=== PATIENT | female | born 1965 | race Caucasian/White ===

== ENCOUNTER 2023-06-02 13:12 | Inpatient (IN) ==
--- NOTE | 2023-06-02 14:28 | Electrocardiogram Report ---
Test Reason : Blood Pressure : / mmHG Vent. Rate : 119 BPM Atrial Rate : 119 BPM P-R Int : 124 ms QRS Dur : 094 ms QT Int : 328 ms P-R-T Axes : 047 023 010 degrees QTc Int : 461 ms Sinus tachycardia Poor R wave progression, consider anterior OH vs. lead placement vs. LVH Abnormal ECG No previous ECGs available Confirmed by Regino Capellan ([id number]) on 06/02/2023 2:28:19 PM Referred By: Confirmed By:Regino Capellan
[2023-06-02 14:37] LABS: Basophils # (auto) 0.05 K/uL (0-0.2); Basophils % (auto) 0.4 %; Eosinophils # (auto) 0.02 K/uL (0-0.50); Eosinophils % (auto) 0.2 %; Hematocrit (blood only) 29.3 % (37.0-47.0); Hemoglobin 8.8 g/dl (12.0-16.0); Immature Granulocytes # (auto) 0.05 K/uL (0.01-0.20); Immature Granulocytes % (auto) 0.4 %; Lymphocytes # (auto) 1.77 K/uL (1.2-3.4); Lymphocytes % (auto) 14.9 %; Mean Corpuscular Volume 86.7 fL (80.0-100.0); Mean Platelet Volume 8.6 fL (9.4-12.4); Monocytes # (auto) 0.94 K/uL (0.11-0.59); Monocytes % (auto) 7.9 %; Neutrophils # (auto) 9.07 K/uL (1.40-6.50); Neutrophils % (auto) 76.2 %; Platelet Count 580 K/uL (130-400); RDW Coefficient of Variation 15.3 % (11.5-14.5); RDW Standard Deviation 47.8 fL (36.4-46.3); Red Blood Count 3.38 M/uL (4.20-5.40)
[2023-06-02 14:42] LABS: Alanine Aminotransferase 9 U/L (7-52); Albumin Globulin Ratio 0.7 (0.9-2); Albumin Level 2.9 gm/dl (3.4-5.0); Alkaline Phosphatase 165 U/L (34-104); Anion Gap 9 (3-11); Aspartate Aminotransferase 14 U/L (13-39); BUN Creatinine Ratio 16.3 (10-20); Bilirubin,Total 0.4 mg/dl (0.2-1.0); Blood Urea Nitrogen 8 mg/dl (6-23); Calcium 8.2 mg/dl (8.6-10.3); Carbon Dioxide 28 mmol/L (21-32); Chloride 99 mmol/L (98-107); Est GFR (African American) 126.2 ml/min; Est GFR (Non-African American) 108.9 ml/min; Globulin 4.4 gm/dl (2.5-4.0); Glucose 112 mg/dl (70-99(Fasting)); Magnesium 2.1 mg/dl (1.7-2.4); Potassium 3.2 mmol/L (3.5-5.1); Sodium 136 mmol/L (136-145); Total Protein 7.3 gm/dl (6.0-8.3)
[2023-06-02 14:47] LABS: Troponin I High Sensitivity 3.6 pg/ml (0-14)
[2023-06-02 15:08] LABS: INR 1.1 (0.9-1.1); Partial Thromboplastin Time 28.8 Seconds (21.0-31.0); Prothrombin Time 11.8 Seconds (9.0-12.0)
--- NOTE | 2023-06-02 15:53 | XRay Report ---
XR chest 1V not portable HISTORY: Sepsis COMPARISON: None. FINDINGS: No pneumothorax. There are low lung volumes. The cardiac silhouette is mildly enlarged. The re is mild central pulmonary vascular congestion without overt edema. Volume loss noted within the ri ght hemithorax with suture material at the right hilum suggestive of postoperative change. There is a small to moderate right pleural effusion. Right perihilar density may be due to the layering pleural fluid and/or consolidation within the right lung. IMPRESSION: 1. Small to moderate right pleural effusion. Right perihilar density may be due to the layering pleur al fluid and/or consolidation. 2. Mild cardiomegaly with mild congestive change. 3. Postoperative changes within the right lung. ACT 112: Negative or not required by law. Electronically signed by: Darin Wu M.D. 06/02/2023 3:51 PM
[2023-06-02] MEDS ORDERED: POTASSIUM CHLORIDE / WTR 10 MEQ/100 ML PLCT IV ONE (17:23)
[2023-06-02] MEDS ORDERED: IOVERSOL 350 MG 125mL Prefilled Syringe IV ONE (17:49)
--- NOTE | 2023-06-02 18:29 | CT Scan Report ---
CT angio chest PE protocol CT DOSE: 1760.63 mGy.cm HISTORY: 58 years-old Female with SOB, leg swelling, hx of sarcoma, WBC 11k. Acute shortness of marco antonio ath TECHNIQUE: Multiple CTA images of the chest were obtained after the intravenous administration of 91 ml Optiray. Coronal and sagittal MIPS were obtained from the axial data set and were submitted for [employer]. All measurements were obtained according to NASCET criteria. A dose lowering technique was ut ilized adhering to the principles of ALARA. COMPARISON: 06/02/2023. FINDINGS: CTA: Heart is normal in size. No pericardial effusion. Mild coronary artery calcifications. Mild atheroscl erosis of the thoracic aorta without aneurysm. Suboptimal opacification of the pulmonary arterial lashon e secondary to contrast bolus timing. Compression of the IVC secondary to the large masses below. Pro minence of the azygos vein. CT CHEST: No thyroid nodule. Calcified and partially outside lymph nodes of the chest include a 2.2 x 1.6 and r ight paratracheal lymph node on image 156. Noncalcified subcarinal lymphadenopathy measures up to 1.2 cm. There is a large heterogeneous partially necrotic mass in the right hemithorax appears to be ext ra pulmonary and is likely pleural-based measuring up to 13 x 12 x 16 cm. The craniocaudal extension of the lesion is partially imaged. This large mass involves the posterior pleura and diaphragmatic avila rfaces extending along the right diaphragmatic arianna into the upper abdomen. There is mass effect with partial collapse of the right lower lobe. Small right pleural effusion. Areas of pleural thickening and enhancement noted within the right hemithorax. Postoperative changes of the right lung. Calcified nodules in the right hemithorax measure up to 5 mm. Noncalcified solid nodules of the right lung courtney sure up to 4 mm. The left lung is generally clear. The central airways are patent. Hepatomegaly with hepatic steatosis. No acute fracture or destructive bone lesion identified. IMPRESSION: 1. Limited exam secondary to contrast bolus timing. No central pulmonary emboli identified. 2. Large partially imaged mass of the right hemithorax appears to be pleural-based and measures over 16 cm in greatest dimension suggestive of a malignant neoplasm. 3. Consolidation with partial collapse of the right lower lobe. 4. Small right pleural effusion with postoperative changes of the right lung. 5. Enlarged calcified and noncalcified mediastinal and right hilar lymph nodes. 6. Several scattered subcentimeter calcified and noncalcified pulmonary nodules of the right lung. ACT 112: Negative or not required by law. The above report was generated using voice recognition software. It may contain grammatical, syntax o r spelling errors. Electronically signed by: Bj Sorto M.D. 06/02/2023 6:26 PM
[2023-06-02] MEDS ORDERED: CEFEPIME 2,000 MG/20 ML VIAL IV STA (18:33)
[2023-06-02] MEDS ORDERED: ONDANSETRON INJ 2 MG/ML 2 ML VIAL IV STA (18:40)
[2023-06-02] MEDS ORDERED: HYDROmorphone INJ 0.5 MG/0.5 ML SYR IV PRN ×3 (18:40→23:33)
--- NOTE | 2023-06-02 19:19 | Emergency Department Note ---
Impression & Plan Right lower lobe lung mass, History of sarcoma, Leg edema, left, Flu-like symptoms, Acute hypokalemia, Anemia ED Provider Note INFORMANT: Patient and significant other ED PROVIDER(S): Gopi Au MD CHIEF COMPLAINT: Flulike symptoms PLAN: Disposition: Admitted Condition: Good Outpatient prescription management: none Referral: None MEDICAL DECISION MAKING: Patient presented because of concerns about possible pneumonia. She had a work- up initiated. She was being treated with antibiotics as an outpatient for presumed pneumonia. Patient was found to have mild anemia and leukocytosis on CBC and hypokalemia on chemistry panel. She was tachycardic. ECG did show poor R wave progression. Troponin was negative. BNP negative. Chest x-ray was concerning for effusion and density in the right lower chest. CT imaging was performed. CT imaging does show some collapse of the right lower lobe and a large mass in the right chest. Patient's notes that her report from [facility], which is not immediately available, measured about 7 inches. Radiology feels that this is likely mass and not infectious. I believe that this is causing the patient's back pain that she noted. She was treated with Dilaudid. She was given IV cefepime. IV potassium was also administered. Ultrasound imaging of the left lower extremity is negative for DVT. Further management and work-up in the hospital will be necessary. Consultation was made with Dr. Alf Hodges of the [facility] service. Patient was evaluated in the ER for further management. Discussed with railroad emergency services manager After review of the information above and other included data, I feel the pa david requires admission. Triage Nursing notes reviewed and agree them. Vital Signs: reviewed and remarkable for tachycardia Prior /Outside records reviewed: none Differential diagnosis: Pneumonia, complication of malignancy, cardiac ischemia, aortic dissection, pulmonary embolism, pneumothorax, pericarditis, myocarditis, esophageal rupture, GERD, cholecystitis, pancreatitis, musculoskeletal, as well as other pathologies. Diagnostics, as interpreted by me: ECG: Twelve-lead ECG was sinus tachycardia at 119 bpm. Poor R wave progression. No ST elevation or depression. Cardiac Monitoring: Cardiac monitoring ordered by me: The patient was placed on continuous cardiac monitoring and observed. It revealed a sinus tachycardia rhythm at 122 beats per minute without ectopy or evidence of dysrhythmia. Medical decision rules: none Imaging studies: Chest x-ray and CT scan as above. I refer you to the EMR for further details. HPI: The patient is a 58year old female who presents to the Emergency Room with complaints of flulike symptoms. This started 2 months ago persisting and is . The patient also notes the following associated symptoms, body aches, mild shortness of breath, swelling of her left lower extremity and hands, cough, pain in the right back, fever. The patient has been prescribed a course of doxycycline and 10 days of Zithromax for relieving factors. Current pain is rated as 0/10. 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 She finished chemotherapy in November 2021. Patient had a small nodule resected in the beginning of this year at [facility]. Primary oncology is at [facility]. Patient's just moved to this area due to 's employment. Patient states that she had a normal PET scan earlier this year. Patient was concerned that she may have had COVID at the beginning of this illness. Patient underwent imaging on May 16 at [facility] and was told that she had a mass in the right chest that the states was 7 inches but they felt it was infectious. They referred her to her PCP and recommended treatment with antibiotics. She states she was told that this was felt to be unlikely related to malignancy given the rapid appearance. Pt denies LOC, headache, diaphoresis, visual changes, neck pain, chest pain, nausea, vomiting, abdominal pain, melena, hematochezia, urinary symptoms, numbness, weakness, lymphadenopathy, rash, or other complaints. PAST MEDICAL HISTORY: See Below, sarcoma PAST SURGICAL HISTORY: See Below, wedge resection SOCIAL HISTORY: See Below, HOME MEDICATIONS: See Below ALLERGIES: See Below VITALS: See Below PHYSICAL EXAMINATION: GENERAL: Awake, alert, mildly uncomfortable-appearing, in no distress HENT: Normocephalic, atraumatic. Oropharynx unremarkable. EYES: Normal conjunctiva. Sclera non-icteric. NECK: Inspection normal. Non-tender. Supple. No nuchal rigidity. FROM. No masses. RESPIRATORY: Clear to auscultation except decreased in the right base. No wheezes. No rales. Normal respiratory effort. CARDIAC: Tachycardic rate. Normal rhythm. No murmurs. No rubs. Extremities warm and well perfused. Pulses equal. No JVD. GI: Soft, non-distended. No tenderness to palpation. No rebound or guarding. No masses. RECTAL: Deferred. MUSCULOSKELETAL: Atraumatic. Chest examination reveals no tenderness. The back is symmetrical on inspection without obvious abnormality. There is no CVA tenderness to palpation. No joint edema. LOWER EXTREMITIES: Right lower extremity amputation present. Left lower extremity examination reveals some 1-2+ lower extremity edema. No discoloration. No calf tenderness. NEURO: Normal sensorium. No sensory or motor deficits noted. SKIN: No rash or jaundice noted. Past Med/Surg History Social History Smoking Status: Never smoker Preferred Language: Cameroonian Feels Safe at Home: Yes Allergies Allergies Allergy/AdvReac Type Severity Reaction Status Date / Time ibuprofen Allergy Severe TONGUE, Verified 06/02/23 17:26 THROAT, MOUTH SWELLS NSAIDS (Non-Steroidal Allergy Severe TONGUE, Verified 06/02/23 17:26 Anti-Inflamma THROAT, MOUTH SWELLS shellfish derived Allergy Severe TONGUE, Verified 06/02/23 17:26 THROAT, MOUTH SWELLS ifosfamide AdvReac Severe CONFUSION/H Verified 06/02/23 17:26 ALLUCINATIO NS Home Meds Home Medications Medication Instructions Recorded Confirmed acetaminophen 500 mg tablet 1,000 mg PO DIRECTED PRN Pain 06/02/23 06/02/23 (Tylenol Extra Strength) Results & Data (ED) Vital Signs Vital Signs - 24 hr 06/02/23 13:19 06/02/23 17:35 06/02/23 17:35 Temperature 36.7 C 36.8 C Temperature Source Temporal Artery Scan Oral Pulse Rate 124 H Pulse Rate [Right Finger] 124 H Pulse Rhythm Regular Pulse Rhythm [Right Finger] Regular Pulse Strength Normal Pulse Strength [Right Finger] Normal Respiratory Rate 20 25 H Respiratory Effort / Characteristics Non-Labored Spontaneous Non-Labored Spontaneous Respiratory Depth Normal Normal Respiratory Pattern Regular Regular Blood Pressure 145/83 H Blood Pressure [Left Arm] 132/77 Blood Pressure Mean 103 Blood Pressure Mean [Left Arm] 95 Blood Pressure Position Sitting Blood Pressure Position [Left Arm] Lying Pulse Oximetry 96 94 Oxygen Delivery Method Room Air Room Air Room Air Oxygen Flow Rate Sepsis Recent Fever Within 48 Hours Yes Sepsis New/Unexplained Change in Mental Status No Sepsis Action Taken by Nursing No Action Required 06/02/23 17:35 06/02/23 18:22 06/02/23 18:06 Temperature Temperature Source Pulse Rate 124 H 117 H Pulse Rate [Right Finger] 114 H Pulse Rhythm Regular Pulse Rhythm [Right Finger] Pulse Strength Pulse Strength [Right Finger] Respiratory Rate 23 18 Respiratory Effort / Characteristics Respiratory Depth Respiratory Pattern Blood Pressure Blood Pressure [Left Arm] 132/76 Blood Pressure Mean Blood Pressure Mean [Left Arm] 94 Blood Pressure Position Blood Pressure Position [Left Arm] Pulse Oximetry 94 96 Oxygen Delivery Method Room Air Room Air Oxygen Flow Rate Sepsis Recent Fever Within 48 Hours Sepsis New/Unexplained Change in Mental Status Sepsis Action Taken by Nursing 06/02/23 19:00 06/02/23 19:43 06/02/23 21:01 Temperature 37.5 C Temperature Source Oral Pulse Rate Pulse Rate [Right Finger] 119 H 118 H 119 H Pulse Rhythm Pulse Rhythm [Right Finger] Regular Pulse Strength Pulse Strength [Right Finger] Normal Respiratory Rate 18 20 16 Respiratory Effort / Characteristics Non-Labored Non-Labored Spontaneous Non-Labored Respiratory Depth Normal Normal Normal Respiratory Pattern Regular Blood Pressure Blood Pressure [Left Arm] 130/71 106/71 157/83 H Blood Pressure Mean Blood Pressure Mean [Left Arm] 90 82 107 Blood Pressure Position Blood Pressure Position [Left Arm] Semi-fowlers Pulse Oximetry 95 94 99 Oxygen Delivery Method Room Air Room Air Nasal Cannula Oxygen Flow Rate 3 Sepsis Recent Fever Within 48 Hours Sepsis New/Unexplained Change in Mental Status Sepsis Action Taken by Nursing 06/02/23 21:30 Temperature Temperature Source Pulse Rate Pulse Rate [Right Finger] 122 H Pulse Rhythm Pulse Rhythm [Right Finger] Pulse Strength Pulse Strength [Right Finger] Respiratory Rate 16 Respiratory Effort / Characteristics Non-Labored Respiratory Depth Normal Respiratory Pattern Blood Pressure Blood Pressure [Left Arm] 140/73 Blood Pressure Mean Blood Pressure Mean [Left Arm] 95 Blood Pressure Position Blood Pressure Position [Left Arm] Pulse Oximetry 99 Oxygen Delivery Method Nasal Cannula Oxygen Flow Rate 3 Sepsis Recent Fever Within 48 Hours Sepsis New/Unexplained Change in Mental Status Sepsis Action Taken by Nursing Laboratory Data 06/02/23 14:00 06/02/23 14:00 Lab Results 06/02/23 06/02/23 06/02/23 Range/Units 14:00 14:00 14:00 WBC 11.90 H (4.8-10.8) K/ul RBC 3.38 L (4.20-5.40) M/uL Hgb 8.8 L (12.0-16.0) g/dl Hct 29.3 L (37.0-47.0) % MCV 86.7 (80.0-100.0) fL MCH 26.0 (25.0-34.0) pg MCHC 30.0 L (32.0-36.0) g/dL RDW Std Deviation 47.8 H (36.4-46.3) fL RDW Coeff of Az 15.3 H (11.5-14.5) % Plt Count 580 H (130-400) K/uL MPV 8.6 L (9.4-12.4) fL Immature Gran % (Auto) 0.4 % Neut % (Auto) 76.2 % Lymph % (Auto) 14.9 % [place] % (Auto) 7.9 % Eos % (Auto) 0.2 % Baso % (Auto) 0.4 % Neut # (Auto) 9.07 H (1.40-6.50) K/uL Lymph # (Auto) 1.77 (1.2-3.4) K/uL [place] # (Auto) 0.94 H (0.11-0.59) K/uL Eos # (Auto) 0.02 (0-0.50) K/uL Baso # (Auto) 0.05 (0-0.2) K/uL Immature Gran # (Auto) 0.05 (0.01-0.20) K/uL PT 11.8 (9.0-12.0) Seconds INR 1.1 (0.9-1.1) APTT 28.8 (21.0-31.0) Seconds PTT Ratio 1.0 Sodium (136-145) mmol/L Potassium (3.5-5.1) mmol/L Chloride (98-107) mmol/L Carbon Dioxide (21-32) mmol/L Anion Gap (3-11) BUN (6-23) mg/dl Creatinine (0.6-1.2) mg/dl Est Cr Clr Drug Dosing Est GFR ( Amer) ml/min Est GFR (Non-Af Amer) ml/min BUN/Creatinine Ratio (10-20) Glucose (70-99(Fasting)) mg/dl Lactate 1.2 (0.4-2.0) mmol/L Calcium (8.6-10.3) mg/dl Magnesium (1.7-2.4) mg/dl Total Bilirubin (0.2-1.0) mg/dl AST (13-39) U/L ALT (7-52) U/L Alkaline Phosphatase (34-104) U/L Troponin I High Sens (0-14) pg/ml B-Natriuretic Peptide (0-100) pg/ml Total Protein (6.0-8.3) gm/dl Albumin (3.4-5.0) gm/dl Globulin (2.5-4.0) gm/dl Albumin/Globulin Ratio (0.9-2) Procalcitonin (0-0.5) ng/ml Urine Color Urine Appearance (Clear) Urine pH (4.5-7.5) Ur Specific Candor (1.000-1.030) Urine Protein (Negative) Urine Glucose (UA) (Negative) Urine Ketones (Negative) Urine Blood (Negative) Urine Nitrite (Negative) Urine Bilirubin (Negative) Urine Urobilinogen (Negative) Ur Leukocyte Esterase (Negative) Urine WBC (Auto) (0-5) /hpf Urine RBC (Auto) (0-4) /hpf U Hyaline Cast (Auto) (0-5) /lpf U Epithel Cells (Auto) (0-5) /lpf Urine Bacteria (Auto) (Negative) Ur Renal Epithelial Cell SARS-CoV-2, RNA, NAAT (NEGATIVE) 06/02/23 06/02/23 06/02/23 Range/Units 14:00 14:00 17:14 WBC (4.8-10.8) K/ul RBC (4.20-5.40) M/uL Hgb (12.0-16.0) g/dl Hct (37.0-47.0) % MCV (80.0-100.0) fL MCH (25.0-34.0) pg MCHC (32.0-36.0) g/dL RDW Std Deviation (36.4-46.3) fL RDW Coeff of Az (11.5-14.5) % Plt Count (130-400) K/uL MPV (9.4-12.4) fL Immature Gran % (Auto) % Neut % (Auto) % Lymph % (Auto) % [place] % (Auto) % Eos % (Auto) % Baso % (Auto) % Neut # (Auto) (1.40-6.50) K/uL Lymph # (Auto) (1.2-3.4) K/uL [place] # (Auto) (0.11-0.59) K/uL Eos # (Auto) (0-0.50) K/uL Baso # (Auto) (0-0.2) K/uL Immature Gran # (Auto) (0.01-0.20) K/uL PT (9.0-12.0) Seconds INR (0.9-1.1) APTT (21.0-31.0) Seconds PTT Ratio Sodium 136 (136-145) mmol/L Potassium 3.2 L (3.5-5.1) mmol/L Chloride 99 (98-107) mmol/L Carbon Dioxide 28 (21-32) mmol/L Anion Gap 9 (3-11) BUN 8 (6-23) mg/dl Creatinine 0.49 L (0.6-1.2) mg/dl Est Cr Clr Drug Dosing Not Reportable Est GFR ( Amer) 126.2 ml/min Est GFR (Non-Af Amer) 108.9 ml/min BUN/Creatinine Ratio 16.3 (10-20) Glucose 112 H (70-99(Fasting)) mg/dl Lactate (0.4-2.0) mmol/L Calcium 8.2 L (8.6-10.3) mg/dl Magnesium 2.1 (1.7-2.4) mg/dl Total Bilirubin 0.4 (0.2-1.0) mg/dl AST 14 (13-39) U/L ALT 9 (7-52) U/L Alkaline Phosphatase 165 H (34-104) U/L Troponin I High Sens 3.6 (0-14) pg/ml B-Natriuretic Peptide 14 (0-100) pg/ml Total Protein 7.3 (6.0-8.3) gm/dl Albumin 2.9 L (3.4-5.0) gm/dl Globulin 4.4 H (2.5-4.0) gm/dl Albumin/Globulin Ratio 0.7 L (0.9-2) Procalcitonin 0.11 (0-0.5) ng/ml Urine Color Urine Appearance (Clear) Urine pH (4.5-7.5) Ur Specific Cand[place] (1.000-1.030) Urine Protein (Negative) Urine Glucose (UA) (Negative) Urine Ketones (Negative) Urine Blood (Negative) Urine Nitrite (Negative) Urine Bilirubin (Negative) Urine Urobilinogen (Negative) Ur Leukocyte Esterase (Negative) Urine WBC (Auto) (0-5) /hpf Urine RBC (Auto) (0-4) /hpf U Hyaline Cast (Auto) (0-5) /lpf U Epithel Cells (Auto) (0-5) /lpf Urine Bacteria (Auto) (Negative) Ur Renal Epithelial Cell SARS-CoV-2, RNA, NAAT (NEGATIVE) 06/02/23 06/02/23 Range/Units 19:15 19:15 WBC (4.8-10.8) K/ul RBC (4.20-5.40) M/uL Hgb (12.0-16.0) g/dl Hct (37.0-47.0) % MCV (80.0-100.0) fL MCH (25.0-34.0) pg MCHC (32.0-36.0) g/dL RDW Std Deviation (36.4-46.3) fL RDW Coeff of Az (11.5-14.5) % Plt Count (130-400) K/uL MPV (9.4-12.4) fL Immature Gran % (Auto) % Neut % (Auto) % Lymph % (Auto) % [place] % (Auto) % Eos % (Auto) % Baso % (Auto) % Neut # (Auto) (1.40-6.50) K/uL Lymph # (Auto) (1.2-3.4) K/uL [place] # (Auto) (0.11-0.59) K/uL Eos # (Auto) (0-0.50) K/uL Baso # (Auto) (0-0.2) K/uL Immature Gran # (Auto) (0.01-0.20) K/uL PT (9.0-12.0) Seconds INR (0.9-1.1) APTT (21.0-31.0) Seconds PTT Ratio Sodium (136-145) mmol/L Potassium (3.5-5.1) mmol/L Chloride (98-107) mmol/L Carbon Dioxide (21-32) mmol/L Anion Gap (3-11) BUN (6-23) mg/dl Creatinine (0.6-1.2) mg/dl Est Cr Clr Drug Dosing Est GFR ( Amer) ml/min Est GFR (Non-Af Amer) ml/min BUN/Creatinine Ratio (10-20) Glucose (70-99(Fasting)) mg/dl Lactate (0.4-2.0) mmol/L Calcium (8.6-10.3) mg/dl Magnesium (1.7-2.4) mg/dl Total Bilirubin (0.2-1.0) mg/dl AST (13-39) U/L ALT (7-52) U/L Alkaline Phosphatase (34-104) U/L Troponin I High Sens (0-14) pg/ml B-Natriuretic Peptide (0-100) pg/ml Total Protein (6.0-8.3) gm/dl Albumin (3.4-5.0) gm/dl Globulin (2.5-4.0) gm/dl Albumin/Globulin Ratio (0.9-2) Procalcitonin (0-0.5) ng/ml Urine Color Yellow Urine Appearance Clear (Clear) Urine pH 5.5 (4.5-7.5) Ur Specific [place] > 1.045 H (1.000-1.030) Urine Protein 1+ H (Negative) Urine Glucose (UA) Negative (Negative) Urine Ketones Trace H (Negative) Urine Blood Trace H (Negative) Urine Nitrite Negative (Negative) Urine Bilirubin Negative (Negative) Urine Urobilinogen Negative (Negative) Ur Leukocyte Esterase Negative (Negative) Urine WBC (Auto) 1-5 (0-5) /hpf Urine RBC (Auto) 0-4 (0-4) /hpf U Hyaline Cast (Auto) 10-30 H (0-5) /lpf U Epithel Cells (Auto) >30 H (0-5) /lpf Urine Bacteria (Auto) Negative (Negative) Ur Renal Epithelial Cell Not Reportable SARS-CoV-2, RNA, NAAT NEGATIVE (NEGATIVE) Administered Medications Hydromorphone HCl (Hydromorphone Inj 0.5 Mg/0.5 Ml Syr) 0.25 mg IV Q30M PRN PRN Reason: Pain Stop: 06/16/23 18:39 Last Admin: 06/02/23 19:27 Dose: 0.25 mg Documented By: ABW Discontinued Medications Hydromorphone HCl (Hydromorphone Inj 0.5 Mg/0.5 Ml Syr) 0.5 mg IV NOW STA Stop: 06/02/23 19:39 Last Admin: 06/02/23 19:45 Dose: 0.5 mg Documented By: ABW Potassium Chloride (K Marlon / Wtr) 10 meq in 100 mls @ 100 mls/hr IV ONE ONE; Protocol Stop: 06/02/23 18:22 Last Infusion: 06/02/23 19:06 Dose: 0 mls/hr Documented By: Admin: 06/02/23 18:06 Dose: 100 mls/hr Documented By: CHRYSTAL Cefepime HCl (Maxipime) 2,000 mg in 20 mls @ 5 mls/min IV NOW STA; Protocol Stop: 06/02/23 18:36 Last Admin: 06/02/23 19:18 Dose: 5 mls/min Documented By: JULIENNE Ioversol (Ioversol 350 Mg 125ml Prefilled Syringe) 91 ml IV ONCE ONE Stop: 06/02/23 17:50 Last Admin: 06/02/23 17:50 Dose: 91 ml Documented By: KAYLIE Ondansetron HCl (Ondansetron Inj 2 Mg/Ml 2 Ml Vial) 4 mg IV NOW STA Stop: 06/02/23 18:41 Last Admin: 06/02/23 19:27 Dose: 4 mg Documented By: CHRYSTAL Imaging Data Radiologist's Impression: Chest X-Ray 06/02/23 13:24 XR chest 1V not portable HISTORY: Sepsis COMPARISON: None. FINDINGS: No pneumothorax. There are low lung volumes. The cardiac silhouette is mildly enlarged. There is mild central pulmonary vascular congestion without overt edema. Volume loss noted within the right hemithorax with suture material at the right hilum suggestive of postoperative change. There is a small to moderate right pleural effusion. Right perihilar density may be due to the layering pleural fluid and/or consolidation within the right lung. IMPRESSION: 1. Small to moderate right pleural effusion. Right perihilar density may be due to the layering pleural fluid and/or consolidation. 2. Mild cardiomegaly with mild congestive change. 3. Postoperative changes within the right lung. ACT 112: Negative or not required by law. Electronically signed by: Darin Wu M.D. 06/02/2023 3:51 PM Chest CTA 06/02/23 17:23 CT angio chest PE protocol CT DOSE: 1760.63 mGy.cm HISTORY: 58 years-old Female with SOB, leg swelling, hx of sarcoma, WBC 11k. Acute shortness of breath TECHNIQUE: Multiple CTA images of the chest were obtained after the intravenous administration of 91 ml Optiray. Coronal and sagittal MIPS were obtained from the axial data set and were submitted for review. All measurements were obtained according to NASCET criteria. A dose lowering technique was utilized adhering to the principles of ALARA. COMPARISON: 06/02/2023. FINDINGS: CTA: Heart is normal in size. No pericardial effusion. Mild coronary artery calcifications. Mild atherosclerosis of the thoracic aorta without aneurysm. Suboptimal opacification of the pulmonary arterial tree secondary to contrast bolus timing. Compression of the IVC secondary to the large masses below. Prom inence of the azygos vein. CT CHEST: No thyroid nodule. Calcified and partially outside lymph nodes of the chest include a 2.2 x 1.6 and right paratracheal lymph node on image 156. Noncalcified subcarinal lymphadenopathy measures up to 1.2 cm. There is a large heterogeneous partially necrotic mass in the right hemithorax appears to be extra pulmonary and is likely pleural-based measuring up to 13 x 12 x 16 cm. The craniocaudal extension of the lesion is partially imaged. This large mass involves the posterior pleura and diaphragmatic surfaces extending along the right diaphragmatic arianna into the upper abdomen. There is mass effect with partial collapse of the right lower lobe. Small right pleural effusion. Areas of pleural thickening and enhancement noted within the right hemithorax. Postoperative changes of the right lung. Calcified nodules in the right hemithorax measure up to 5 mm. Noncalcified solid nodules of the right lung measure up to 4 mm. The left lung is generally clear. The central airways are patent. Hepatomegaly with hepatic steatosis. No acute fracture or destructive bone lesion identified. IMPRESSION: 1. Limited exam secondary to contrast bolus timing. No central pulmonary emboli identified. 2. Large partially imaged mass of the right hemithorax appears to be pleural- based and measures over 16 cm in greatest dimension suggestive of a malignant neoplasm. 3. Consolidation with partial collapse of the right lower lobe. 4. Small right pleural effusion with postoperative changes of the right lung. 5. Enlarged calcified and noncalcified mediastinal and right hilar lymph nodes. 6. Several scattered subcentimeter calcified and noncalcified pulmonary nodules of the right lung. ACT 112: Negative or not required by law. The above report was generated using voice recognition software. It may contain grammatical, syntax or spelling errors. Electronically signed by: Bj Sorto M.D. 06/02/2023 6:26 PM Venous Doppler Study 06/02/23 17:23 Exam(s): US VENOUS LEFT LOWER EXTREMITY EXAM: US Duplex Left Lower Extremity Veins CLINICAL HISTORY: Edema. TECHNIQUE: Real-time duplex ultrasound scan of the left lower extremity veins integrating B-mode two-dimensional vascular structure, Doppler spectral analysis, color flow Doppler imaging and compression. COMPARISON: No relevant prior studies available. FINDINGS: Deep veins: Unremarkable. No DVT in the visualized common femoral, femoral, proximal deep femoral or popliteal veins. The veins demonstrate normal color flow, are normally compressible, with normal phasic flow and/or augmentation response. The interrogated calf veins are patent. Superficial veins: Unremarkable. No thrombus in the saphenofemoral junction. Soft tissues: No acute findings. No popliteal cyst. IMPRESSION: No evidence for deep vein thrombosis involving the left lower extremity. Electronically signed by: Sang Reed MD 06/02/23 21:44 PM Discharge Plan Visit Data Chief Complaint: Referred by Doctor Stated Complaint: REF BY , COUGHING, SOB ED Provider: Gopi Au Discharge Problem: Right lower lobe lung mass, History of sarcoma, Leg edema, left, Flu-like symptoms, Acute hypokalemia, Anemia Forms Stand Alone Forms: Lua Prescriptions Prescriptions: No Action acetaminophen [Tylenol Extra Strength] 500 mg Tablet 1,000 mg PO DIRECTED PRN (Reason: Pain) Referrals Referrals: PCP,NO [Primary Care Provider] -
[2023-06-02] MEDS ORDERED: HYDROmorphone INJ 0.5 MG/0.5 ML SYR IV STA (19:38)
[2023-06-02 21:03] LABS: Appearance Urine Clear (Clear); Bacteria Urine Automated Negative (Negative); Bilirubin Urine Negative (Negative); Blood Urine Trace (Negative); Color Urine Yellow; Epithelial Cell Urine Auto >30 /lpf (0-5); Glucose Urine UA Negative (Negative); Ketones Urine Trace (Negative); Leukocyte Esterase Urine Negative (Negative); Nitrite Urine Negative (Negative); Protein Urine 1+ (Negative); RBC Urine Automated 0-4 /hpf (0-4); Specific Gravity Urine > 1.045 (1.000-1.030); Urobilinogen Urine Negative (Negative); pH Urine 5.5 (4.5-7.5)
--- NOTE | 2023-06-02 21:45 | Ultrasound Report ---
Exam(s): US VENOUS LEFT LOWER EXTREMITY EXAM: US Duplex Left Lower Extremity Veins CLINICAL HISTORY: Edema. TECHNIQUE: Real-time duplex ultrasound scan of the left lower extremity veins integrating B-mode two-dimensional vascular structure, Doppler spectral analysis, color flow Doppler imaging and compression. COMPARISON: No relevant prior studies available. FINDINGS: Deep veins: Unremarkable. No DVT in the visualized common femoral, femoral, proximal deep femoral or popliteal veins. The veins demonstrate normal color flow, are normally compressible, with normal phasic flow and/or augmentation response. The interrogated calf veins are patent. Superficial veins: Unremarkable. No thrombus in the saphenofemoral junction. Soft tissues: No acute findings. No popliteal cyst. IMPRESSION: No evidence for deep vein thrombosis involving the left lower extremity. Electronically signed by: Sang Reed MD 06/02/23 21:44 PM
--- NOTE | 2023-06-02 23:28 | History & Physical Report ---
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 -S/p IV cefepime 2 g in the ED. -10/31/2022: Metastatic nodule removed from right middle lobe via VATS wedge resection at [facility]. -02/13/2023: Total body PET scan negative no cancer detected. -03/23/2023: Onset of respiratory symptoms. Refractory to multiple antibiotics courses (doxycycline, azithromycin), supportive therapy. -05/14/2023: Lung consolidation on the right measuring approximately 7 cm long discovered on routine chest CT at [facility] etiology deemed to be most likely infectious by reviewing oncologist due to previously clear PET scan. -Patient unable to establish care with pulmonology since her got a new job at [employer]. Had been deferring ED visit due to the presumption that this was pneumonia. Only decided to come in due to worsening back pain, nonresolution of fever, cough. -Strongly suspect malignant process, given previous history of sarcoma, persistence of symptoms in spite of multiple antibiotics courses, low-grade fever, and waxing/waning of respiratory symptoms coinciding with antibiotic courses. * Admit to MedSur telemetry * Pulmonology consult for further evaluation of, management recommendations for lung mass. Made n.p.o. in advance of likely pleurocentesis. * Maintenance rate IV LR * Continue IV cefepime 2 g every 8 hours. Blood culture report pending. * IV Tylenol 1000 mg every 8 hours scheduled for right lower chest/RUQ pain. As needed IV hydromorphone for refractory pain. * SQ heparin anticoagulation (see below) * Trend leukocytosis on a.m. CBC Edema of left lower leg -No venous clot seen on Doppler performed prior to admission. -Area of mild erythema, though without tenderness to palpation, fluctuance, or ulcerations. -WBC only mildly elevated at 11, procalcitonin within normal limits. Low suspicion for cellulitic process, though will continue monitor. Anemia -Hemoglobin 8.8 in ER prior to admission. Normocytic. Unclear if acute or chronic. Patient relatively unknown to [facility]. No previous hemoglobin values for comparison. -History of sarcoma, though patient last treated with chemoradiation in November 2021. -Patient is relatively asymptomatic. Low concern for bleeding * Despite relatively low concern for bleeding, would consider initiating type and cross, obtaining patient consent in case repeat hemoglobin further decreases. Thrombocythemia -Unclear whether acute or chronic. Platelet count of 580 discovered in the ED prior to admission. -Mostly asymptomatic: Constitutional weakness, fatigue (no asterixis, bruising, or clots) * Peripheral smear ordered Hypokalemia -3.2 on admission. S/p repletion in the ED with IV KCl x10 mEq. * Replete with IV KCl rider x40 mEq * Trend a.m. BMP. Replete as indicated. 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 -Received 25 rounds of radiation treatment to the thigh and 3 rounds of chemotherapy (doxorubicin, ifosfamide, mesna) at [facility] between September 2021- November 2021. -Complete removal of right leg including femur on 01/16/2022. Per patient, clear margins achieved, 99% tumor necrosis. Surgery performed by Dr. Jam Candelaria at [place]. -Discovery of right middle lung nodule x1 determined to be metastasis of sarcoma. Nodule resected via VATS wedge surgery. Procedure performed by Dr. Daron Rogers at [facility]. Subsequent PET scan on 02/13/2023 clear (no cancer detected). * Oncology consult placed, as patient would like to establish care. Could be managed outpatient, though given uncertainty regarding potential malignant lung mass, inpatient oncological evaluation seems practical. Code: Full code Dispo: Med-Surg telemetry FEN/GI: NPO. IV LR @maintenance rate DVT Prophylaxis: Heparin 5000 u q12h PT/OT: Yes Consults: Pulmonology. Oncology. 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 Jesusalejandro Candelaria]) and subsequent right lung metastasis (s/p VATS wedge resection of right middle lobe on 10/31/[address] Daron Ibanez at [facility]). She presents to the emergency room with persistent back pain, fever, and rhinorrhea since 03/23/2023. Patient reports symptoms began on 03/23 with cough, rhinorrhea, fever, throat pain, as well as "muscle aches in the back." She managed her symptoms with OTC Mucinex DM after which her symptoms resolved, save for rhinorrhea, which lasted for 3 weeks and precipitated visit to urgent care on 04/16. She received prescription for doxycycline x10 days for possible pneumonia, which she completed. She reports her back pain improved at that time, though developed swelling in her hands and foot. She reports her fever and back pain returned about 3 days after completing doxycycline course. She presented to the same urgent care ([facility] in [place]) with a complaint of persistent fevershe was diagnosed with a viral infection and discharged home with instructions for trial of supportive therapy (Mucinex, oral hydration, etc.). When her symptoms did not improve, she contacted her o ncologist at [facility] (Dr. Rosario Browne [facility], [facility]) they recommended coming in for a chest CT scan. CT scan performed 05/14/2023 revealed right lower lung mass measuring approximately 7 cm, but was told by oncologist that mass was likely 2/2 infection given its rapid growth, and not likely to be malignant (no cancer detected at last PET scan on 02/13/2023). 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 She received 10-day course of azithromycin 500 mg at [facility] on 05/21/2023. Patient continued to report progressively worsening upper back pain, fever, night sweats, and malaise so her suggested she come to the ER for immediate evaluation. In the ED, vitals were notable for tachycardia to the 110s-120s. WBC was mildly elevated at 11.9. Anemia of 8.8 was also noted, as was thrombocytosis with a platelet count of 580K. She was also mildly hypokalemic (3.2) and hypocalcemic (8.2). Alk phos-165, lipase-6, lactate-1.2. Chest CTA revealed a "large heterogenous partially necrotic mass in the right hemithorax [that] appears to be extrapulmonary and is likely pleural-based measuring up to 13 x 12 x 16 cm." The mass involved the posterior pleura and diaphragmatic surfaces extending along right diaphragmatic arianna into the upper abdomen. Mass effect with partial collapse of right lower lobe, and a small right pleural effusion were noted on imaging. She received a dose of IV cefepime and IV Dilaudid, as well as 10 mEq of potassium chloride. Hospitalist service was then consulted for admission. On admission, she denies headache, shortness of breath, chest pain, nausea, flank pain, dysuria, or hematuria. ROS + 2/10 RUQ pain, left leg swelling. Patient has no other chronic conditions and takes no medications, save for as needed Tylenol. She is a never smoker. Her last chemo session was November 2021. Allergies Allergy/AdvReac Type Severity Reaction Status Date / Time ibuprofen Allergy Severe TONGUE, Verified 06/02/23 17:26 THROAT, MOUTH SWELLS NSAIDS (Non-Steroidal Allergy Severe TONGUE, Verified 06/02/23 17:26 Anti-Inflamma THROAT, MOUTH SWELLS shellfish derived Allergy Severe TONGUE, Verified 06/02/23 17:26 THROAT, MOUTH SWELLS ifosfamide AdvReac Severe CONFUSION/H Verified 06/02/23 17:26 ALLUCINATIO NS Home Medications Medication Instructions Recorded Confirmed Type acetaminophen 500 mg tablet 1,000 mg PO DIRECTED PRN Pain 06/02/23 06/02/23 History (Tylenol Extra Strength) Past Med/Surg History Social History Smoking Status: Never smoker Hx Alcohol Use: No Hx Substance Use: No Preferred Language: [place] African Communication Ability: Effective Data Abstractor Required: No Beliefs That Will Affect Care: None Current Living Situation: Spouse Feels Safe at Home: Yes Assistive Devices: Lift Chair, Prosthesis, Stair Lift, Walker and Wheelchair Review of Systems Review of Systems: All systems reviewed & are unremarkable except as noted in HPI & below Physical Exam Physical Exam: General: Tired-appearing, but otherwise alert and interactive woman in no acute distress. HEENT: Normocephalic, atraumatic. EOM intact. Good conjugate gaze. Nares patent. Moist mucosal membranes. Neck: Supple. No lymphadenopathy. Normal ROM. CV: Tachycardic rate. Regular rhythm. Normal S1 and S2. No murmurs gallops or rubs. Respiratory: Normal respiratory effortspeaking in complete sentences. Diminished breath sounds on the right, greatest at lower and middle lobes. No crackles, rhonchi, or wheezes heard on auscultation. Abdomen: Soft, nondistended abdomen. No bruits heard on auscultation. No tenderness to deep palpation. No guarding or rebound. 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 Left LE intact. 2+ pedal edema to the mid-franklin on the left. Neuro: Alert and oriented x3. Skin: Mild erythema of left lower leg with indistinct borders. Results & Data Results & Data Vital Signs (Past 12 Hours) Vital Signs Temp Pulse Pulse Resp BP BP Pulse Ox 06/02/23 22:30 122 H 16 174/103 H 97 06/02/23 21:30 122 H 16 140/73 99 06/02/23 21:01 119 H 16 157/83 H 99 06/02/23 19:43 37.5 C 118 H 20 106/71 94 06/02/23 19:00 119 H 18 130/71 95 06/02/23 18:06 117 H 06/02/23 18:22 114 H 18 132/76 96 06/02/23 17:35 124 H 23 94 06/02/23 17:35 06/02/23 17:35 36.8 C 124 H 25 H 132/77 94 06/02/23 13:19 36.7 C 124 H 20 145/83 H 96 O2 Del Method O2 Flow Rate 06/02/23 22:30 06/02/23 21:30 Nasal Cannula 3 06/02/23 21:01 Nasal Cannula 3 06/02/23 19:43 Room Air 06/02/23 19:00 Room Air 06/02/23 18:06 06/02/23 18:22 Room Air 06/02/23 17:35 Room Air 06/02/23 17:35 Room Air 06/02/23 17:35 Room Air 06/02/23 13:19 Room Air Code Status & VTE Plan VTE Prophylaxis Plan VTE Prophylaxis will be ordered: Yes Supervising Physician Co-Signing Physician Notes Attending addendum: I have physically seen this patient, have supervised the medical residents activities, and agree with the H&P unless as otherwise noted. Assessment and Plan: Right hemithorax pleural-based mass 16 cm/right lower lobe consolidation and partial lung collapse/mediastinal and right hilar lymphadenopathy- Right lung consolidation was noted to be 7 cm long with discovered at [facility] on 05/14/2023 and treated empirically for infection Surgeries and scans as noted in primary resident note Patient is seen as a new transfer to the area along with her Placed on broad-spectrum antibiotics vancomycin IV and cefepime IV Pain control with IV Tylenol for mild pain or fever, and Dilaudid IV as noted for moderate to severe pain Consult pulmonology Consult hematology oncology History of sarcoma- Stage III high-grade undifferentiated pleomorphic sarcoma of right thigh diagnosed September 2021 Status post 25 rounds of radiation therapy and 3 rounds of chemotherapy at [facility] from September 2021 through November 2021 Status post right leg amputation on 01/16/2022 right middle lobe lung nodule determined to be metastatic sarcoma via VATS surgery on 10/31/2022 Consult hematology oncology Remaining orders and notations as noted Resident Activity Tracking Resident Involvement: Resident Care Provided Care Provided: Adult [facility] Medicine
[2023-06-02] MEDS ORDERED: MELATONIN 3 MG TAB PO PRN (23:33)
[2023-06-02] MEDS ORDERED: POLYETHYLENE (MIRALAX) 17 GM PACK PO PRN (23:33)
[2023-06-03] MEDS: ACETAMINOPHEN 500 MG TAB PO SCH ×3 (00:15→14:49)
[2023-06-03] MEDS: LACTATED RINGER'S 1,000 ML IV SCH ×2 (00:16→13:23)
[2023-06-03 01:32] LABS: INR 1.1 (0.9-1.1); Prothrombin Time 11.9 Seconds (9.0-12.0)
[2023-06-03] MEDS: CEFEPIME 2,000 MG in SYRINGE 0 ML IV SCH ×3 (03:53→20:31)
[2023-06-03 04:43] LABS: Hematocrit (blood only) 25.3 % (37.0-47.0); Hemoglobin 7.6 g/dl (12.0-16.0); Mean Corpuscular Hemoglobin 25.7 pg (25.0-34.0); Mean Corpuscular Volume 85.5 fL (80.0-100.0); Mean Platelet Volume 8.7 fL (9.4-12.4); Platelet Count 516 K/uL (130-400); RDW Coefficient of Variation 15.4 % (11.5-14.5); RDW Standard Deviation 47.8 fL (36.4-46.3); Red Blood Count 2.96 M/uL (4.20-5.40); White Blood Count 13.66 K/ul (4.8-10.8)
[2023-06-03 04:56] LABS: BUN Creatinine Ratio 18.4 (10-20); Calcium 8.2 mg/dl (8.6-10.3); Creatinine Clr Calc Pharmacy 141.6 ml/min; Est GFR (African American) 126.2 ml/min; Est GFR (Non-African American) 108.9 ml/min; Magnesium 2.2 mg/dl (1.7-2.4); Phosphorus 3.9 mg/dl (2.5-4.9); Potassium 3.6 mmol/L (3.5-5.1)
[2023-06-03] MEDS: POTASSIUM CHLORIDE / WTR 10 MEQ/100 ML PLCT IV SCH ×4 (05:30→08:35)
--- NOTE | 2023-06-03 07:35 | Hospitalist Progress Note ---
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 #Right lung mass -13 x 12 x 16 cm right lower lung mass discovered on chest CTA prior to admission in ED concerning for lung malignancy. -S/p IV cefepime 2 g in the ED. -10/31/2022: Metastatic nodule removed from right middle lobe via VATS wedge [place] [facility] -02/13/2023: Total body PET scan negative no cancer detected. -03/23/2023: Onset of respiratory symptoms. Refractory to multiple antibiotics courses (doxycycline, azithromycin), supportive therapy. -05/14/2023: Lung consolidation on the right measuring approximately 7 cm long discovered on routine chest CT at [facility] etiology deemed to be most likely infectious by reviewing oncologist due to previously clear PET scan. -Patient unable to establish care with pulmonology since her got a new job at [employer]. Had been deferring ED visit due to the presumption that this was pneumonia. Only decided to come in due to worsening back pain, nonresolution of fever, cough. -Strongly suspect malignant process, given previous history of sarcoma, persistence of symptoms in spite of multiple antibiotics courses, low-grade fever, and waxing/waning of respiratory symptoms coinciding with antibiotic courses. * Maintenance rate IV LR * Continue IV cefepime 2 g every 8 hours. Blood culture report pending. * IV Tylenol 1000 mg every 8 hours scheduled for right lower chest/RUQ pain. As needed IV hydromorphone for refractory pain. * SQ heparin anticoagulation (see below) * Trend leukocytosis on a.m. CBC * Pulmonology consulted; Pt to undergo biopsy of the intrathoracic chest mass tomorrow at 8:30 AM and EBUS at noon, #Anemia -Hemoglobin 8.8 in ER prior to admission, now 7.6 - Unclear if acute or chronic -History of sarcoma, though patient last treated with chemoradiation in November 2021. -Patient is relatively asymptomatic. - type and cross and transfusion consent obtained due to hgb 7.6, will recheck in the am for need for transfusion, no overt active bleeding noted at this time #Hypokalemia -3.2 on admission. S/p repletion in the ED with IV KCl x10 mEq. * Repleted with IV KCl rider x40 mEq * Trend a.m. BMP. Replete as indicated. * Today K+ was 3.6 #Edema of left lower leg -No venous clot seen on Doppler performed prior to admission. -Area of mild erythema, though without tenderness to palpation, fluctuance, or ulcerations. -WBC only mildly elevated at 11, procalcitonin within normal limits. Low suspicion for cellulitic process, though will continue monitor. #Thrombocythemia -Unclear whether acute or chronic. Platelet count of 580 discovered in the ED prior to admission. 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 -Received 25 rounds of radiation treatment to the thigh and 3 rounds of chemotherapy (doxorubicin, ifosfamide, mesna) at [facility] between September 2021- November 2021. -Complete removal of right leg including femur on 01/16/2022. Per patient, clear margins achieved, 99% tumor necrosis. Surgery performed by Dr. Jam Candelaria at [place]. -Discovery of right middle lung nodule x1 determined to be metastasis of sarcoma. Nodule resected via VATS wedge surgery. Procedure performed by Dr. Daron Rogers at [facility]. Subsequent PET scan on 02/13/2023 clear (no cancer detected). * Oncology consult placed, as patient would like to establish care. Could be managed outpatient, though given uncertainty regarding potential malignant lung mass, inpatient oncological evaluation seems practical. Code: Full code Dispo: Med-Surg telemetry FEN/GI: NPO. IV LR @maintenance rate DVT Prophylaxis: Heparin 5000 u q12h PT/OT: Yes Consults: Pulmonology. Oncology. Case Management: Yes (2) Leg edema, left: (3) Anemia: (4) Acute hypokalemia: (5) Thrombocythemia: Admission and Anticipated Discharge Date Admission Date: June 02, 2023 Supervising Physician Co-Signing Physician Notes I personally examined the patient and verified all hanson points of history and exam, discussed case, and agree with decision making with Dr Cunha feeling Ok for biopsies tomorrow no current questions vitals noted nad heent nc at mmm breathing unlabored no accessory muscles good effort skin no rashes no pallor or icterus lung mass - concerning for recurrent malignancy. biopsies tomorrow. 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 Pt was seen this morning in the ED. present in the room. Symptoms had first started about 2 months ago and she has had persistent flu-like symptoms such as cough, body aches, shortness of breath, fever, back pain, and swelling of hands and L leg. Today, pt states that she is feeling better and that the back pain greatly improved with the Dilaudid that was given overnight. Right now, she is just concerned about the mass in her R lung since initially when noted by [facility] it was said to be infectious. No questions or complaints at this time otherwise. Review of Systems Review of Systems: Constitutional: denies fever, chills, HEENT: denies congestion, sore throat Cardio: denies chest pain, palpitations Resp: denies shortness of breath, cough GI: denies abdominal pain, nausea, vomiting, Physical Exam Physical Exam: General:Alert and oriented, no acute distress, HEENT: Normocephalic, moist oral mucosa, Cardio: Regular rate and rhythm, no murmur, Resp:Lungs clear to auscultation b/l, no wheezes or rhonchi, GI: Soft and nontender, nondistended, bowel sounds active Skin: Warm, pink, dry, MSK: Nonpitting edema noted of the left foot, R leg s/p amputation Psych: Mood-affect congruence. Results & Data Results & Data Vital Signs (Past 12 Hours) Vital Signs Temp Pulse Pulse Resp BP BP Pulse Ox 06/03/23 07:00 111 H 21 99 06/03/23 07:00 112/70 06/03/23 06:40 114/75 06/03/23 06:40 114/75 06/03/23 06:40 111 H 19 114/75 98 06/03/23 04:12 118 H 17 100/79 98 06/03/23 03:30 109 H 24 129/75 99 06/03/23 04:26 98 06/03/23 04:19 06/03/23 03:00 113 H 27 H 108/75 98 06/02/23 22:31 123 H 06/03/23 02:00 114 H 28 H 135/76 98 06/03/23 01:30 109 H 29 H 124/76 98 06/03/23 00:30 115 H 27 H 129/74 99 06/03/23 00:00 116 H 29 H 160/87 H 98 06/02/23 23:00 123 H 21 157/82 H 97 06/02/23 22:30 122 H 16 174/103 H 97 06/02/23 21:30 122 H 16 140/73 99 06/02/23 21:01 119 H 16 157/83 H 99 06/02/23 19:43 37.5 C 118 H 20 106/71 94 Pulse Ox O2 Del Method O2 Flow Rate 06/03/23 07:00 06/03/23 07:00 06/03/23 06:40 06/03/23 06:40 06/03/23 06:40 Nasal Cannula 3 06/03/23 04:12 Nasal Cannula 3 06/03/23 03:30 Nasal Cannula 3 06/03/23 04:26 Nasal Cannula 3 06/03/23 04:19 88 L Room Air 06/03/23 03:00 Nasal Cannula 06/02/23 22:31 06/03/23 02:00 Nasal Cannula 06/03/23 01:30 Nasal Cannula 06/03/23 00:30 Nasal Cannula 06/03/23 00:00 Nasal Cannula 3 06/02/23 23:00 Nasal Cannula 3 06/02/23 22:30 06/02/23 21:30 Nasal Cannula 3 06/02/23 21:01 Nasal Cannula 3 06/02/23 19:43 Room Air Resident Activity Tracking Resident Involvement: Resident Care Provided Care Provided: Adult Hospital Medicine
--- NOTE | 2023-06-03 08:17 | Pulmonary Consultation ---
Date of Consultation June 03, 2023 Assessment & Plan (1) Right lower lobe lung mass: (2) History of sarcoma: Plan IMPRESSION: 58-year-old female presenting with ongoing febrile illness, cough, and RIGHT upper back pain who was found to have large 16 cm pleural-based chest mass on CTA concerning for recurrence of previous history of high-grade sarcoma. RECOMMENDATIONS: 1. Intrathoracic chest mass - Highly suspicious for recurrence of sarcoma given patient's clinical history. Patient has been treated with 2 separate long courses of antibiotics without resolve of symptoms. We are unable to access the patient's recent PET/CT results from [facility], but regardless her images are concerning for possible neoplastic process. I did reach out to Dr. Daron Ibanez at [facility] who had previously performed her VATS with RIGHT middle lobe wedge resection. He is agreeable with obtaining tissue diagnosis first. He is uncertain if the patient would be a surgical candidate given the extensiveness of these findings. Discussed the case with interventional radiology. Reviewed all findings with the patient as well. Patient to undergo biopsy of the intrathoracic chest mass tomorrow at 8:30 AM and EBUS at noon. Agree with oncologic evaluation sooner rather than later. Patient will need outpatient PET scan. She may also need brain MRI to evaluate for metastatic processes as well. Otherwise, she is saturating well on 1 L at this time. We will evaluate the role for radiation oncology pending tissue biopsy results. Thank you for allowing us to participate in the care of this patient. We will continue to follow along during her inpatient stay. Supervising Physician Co-Signing Physician Notes Patient seen and examined. EMR reviewed. Images were independently reviewed and discussed with thoracic surgery at [facility]. The mass appears to be pleural- based with necrosis. Discussed with interventional radiology and there is a window to obtain a core biopsy of the more solid component. In addition she has mediastinal lymph nodes and will require staging of her mediastinum. We will schedule her for EBUS. The patient and spouse were apprised of the differential diagnosis to include malignancy, atypical infection (nocardia, actinomyces, nontuberculous mycobacterial infections). Additional recommendations will be based on pathology results from the biopsy and staging from the EBUS. She will require outpatient PET scanning. The patient and her are unclear where they are going to pursue additional cancer care. This may be at [facility] or may be at [facility]. We also discussed [facility] and [facility] who have excellent sarcoma programs. History of Present Illness Reason for Consultation: Right lower lung mass, c/f malignancy Requesting Physician: Dr. 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 The patient subsequently underwent 25 rounds of radiation treatments and chemotherapy including doxorubicin, ifosfamide, and mesna between September 2021 and November 2021. Patient eventually required amputation via disarticulation of the RIGHT-sided leg in December [address] Jam Candelaria at [facility]. The patient had continue to follow with [facility] for her sarcoma and had a CT finding with suspicious RIGHT middle lobe lung nodule. She underwent wedge resection of the RIGHT middle lobe in October [address] Daron Ibanez. The patient had then moved to [place] when her lost his job and she establish care with [facility] sarcoma clinic. She had seen him on 2 separate occasions. Unfortunately, on March 23, the patient developed flulike symptoms including body aches, fever, and generalized malaise as well as upper respiratory component of cough. She was seen 3 weeks later at a walk-in clinic and provided a prescription for 10 days of doxycycline. She had persistent fevers throughout. At the end of April, she had follow-up with her sarcoma specialist and there was concern for RIGHT lower lobe mass which was felt to be more related to infection. She was placed on an additional course of azithromycin for 10 days which had recently completed. Despite this, she r eports ongoing symptoms of fevers, cough, generalized malaise, night sweats, poor appetite, and unintentional weight loss. Patient had developed swelling of the LEFT lower extremity and bilateral upper extremities with some associated cough and RIGHT upper back pain which prompted visit to the emergency department. In evaluation in the emergency department, the patient was noted to have a large 16 cm pleural-based lung mass. She has a slight elevation of her white blood cell count at 13,000. She is also anemic and with thrombocythemia. Upon evaluation in room C10, the patient is awake, alert, and oriented. She continues to complain of some RIGHT upper back pain. Otherwise, she offers no new complaints at this time. Patient is recently returned to this area as her 's job is located them approximately 1 hour away. She has not established care locally to this point. Allergies Allergy/AdvReac Type Severity Reaction Status Date / Time ibuprofen Allergy Severe TONGUE, Verified 06/02/23 17:26 THROAT, MOUTH SWELLS NSAIDS (Non-Steroidal Allergy Severe TONGUE, Verified 06/02/23 17:26 Anti-Inflamma THROAT, MOUTH SWELLS shellfish derived Allergy Severe TONGUE, Verified 06/02/23 17:26 THROAT, MOUTH SWELLS ifosfamide AdvReac Severe CONFUSION/H Verified 06/02/23 17:26 ALLUCINATIO NS Home Medications Medication Instructions Recorded Confirmed Type acetaminophen 500 mg tablet 1,000 mg PO DIRECTED PRN Pain 06/02/23 06/02/23 History (Tylenol Extra Strength) Patient History Social History Smoking Status: Never smoker Preferred Language: Surinamese Feels Safe at Home: Yes Review of Systems Review of Systems: A complete 10 point review of systems was reviewed with the patient with pertinent positives and negatives as per history of present illness. All else were negative. Physical Exam Physical Exam: VITAL SIGNS - Vital signs and nursing notes were reviewed. GENERAL - 58-year-old female appearing her stated age who is in no acute distress. Communicates well with provider and answers questions appropriately. SKIN - Without rashes or lesions. NOSE - Midline and without cyanosis. MOUTH/OROPHARYNX - Without perioral cyanosis. LUNGS - Auscultation reveals absent breath sounds at the RIGHT lung base. No adventitious breath sounds noted throughout the remainder of lung yen. CARDIAC - RRR with S1/S2. No murmur, rubs, or gallops appreciated. ABDOMEN - Abdominal inspection demonstrates an obese abdomen. BS normoactive all four quadrants. No tenderness, palpable masses, or ascites noted. EXTREMITIES - LLE and bilateral UE peripheral edema. +3/5 radial palpated throughout. PSYCH - A&Ox3 and cooperates fully with examiner. Pt is very pleasant and interacts well with examiner. Results & Data Results & Data Vital Signs (Past 12 Hours) Vital Signs Pulse Pulse Resp BP BP Pulse Ox Pulse Ox 06/03/23 07:00 111 H 21 99 06/03/23 07:00 112/70 06/03/23 06:40 114/75 06/03/23 06:40 114/75 06/03/23 06:40 111 H 19 114/75 98 06/03/23 04:12 118 H 17 100/79 98 06/03/23 03:30 109 H 24 129/75 99 06/03/23 04:26 98 06/03/23 04:19 88 L 06/03/23 03:00 113 H 27 H 108/75 98 06/02/23 22:31 123 H 06/03/23 02:00 114 H 28 H 135/76 98 06/03/23 01:30 109 H 29 H 124/76 98 06/03/23 00:30 115 H 27 H 129/74 99 06/03/23 00:00 116 H 29 H 160/87 H 98 06/02/23 23:00 123 H 21 157/82 H 97 06/02/23 22:30 122 H 16 174/103 H 97 06/02/23 21:30 122 H 16 140/73 99 06/02/23 21:01 119 H 16 157/83 H 99 O2 Del Method O2 Flow Rate 06/03/23 07:00 06/03/23 07:00 06/03/23 06:40 06/03/23 06:40 06/03/23 06:40 Nasal Cannula 3 06/03/23 04:12 Nasal Cannula 3 06/03/23 03:30 Nasal Cannula 3 06/03/23 04:26 Nasal Cannula 3 06/03/23 04:19 Room Air 06/03/23 03:00 Nasal Cannula 06/02/23 22:31 06/03/23 02:00 Nasal Cannula 06/03/23 01:30 Nasal Cannula 06/03/23 00:30 Nasal Cannula 06/03/23 00:00 Nasal Cannula 3 06/02/23 23:00 Nasal Cannula 3 06/02/23 22:30 06/02/23 21:30 Nasal Cannula 3 06/02/23 21:01 Nasal Cannula 3 PG Care Time/CCT Total # of Minutes Spent Total Time Spent with Patient: Total time spent is greater than 50% in coordination of care (as documented) at patient's floor/unit and/or counseling patient: Coding Level of Care Code 71444 IN/OBS CONSULT LVL 5,80M Diagnoses Right lower lobe lung mass R91.8 History of sarcoma Z85.831
[2023-06-03] MEDS ORDERED: HEPARIN SOD 5,000 UNIT/0.5 ML VIAL SQ SCH (09:00)
--- NOTE | 2023-06-03 15:58 | Electrocardiogram Report ---
Test Reason : Blood Pressure : / mmHG Vent. Rate : 117 BPM Atrial Rate : 117 BPM P-R Int : 122 ms QRS Dur : 092 ms QT Int : 334 ms P-R-T Axes : 043 033 014 degrees QTc Int : 465 ms Sinus tachycardia Otherwise normal ECG When compared with ECG of 02-JUN-2023 13:54, No significant change was found Confirmed by Regino Capellan ([id number]) on 06/03/2023 3:57:54 PM Referred By: REFERRED SELF Confirmed By:Regino Capellan
[2023-06-03 18:05] LABS: Reticulocyte % 2.7 % (0.5-2.0); Reticulocytes # 0.08 10^6/uL (0.02-0.10)
[2023-06-03 18:18] LABS: Iron 11 mcg/dl (35-150); Total Iron Binding Cap Calc 168 mcg/dl (250-450); Transferrin (FE) Percent Satur 7 % (15-50); Unsaturated Iron Binding Cap 157 mcg/dl (155-355)
[2023-06-03 18:44] LABS: Folate (Folic Acid),Ser orPlas 9.61 ng/ml (>5.38)
--- NOTE | 2023-06-03 19:07 | Billing Data ---
Date of Service June 03, 2023 Coding Level of Care Code 30976 SUB INP/OBS CARE
--- NOTE | 2023-06-03 22:58 | Consultation ---
Date of Consultation June 03, 2023 Assessment & Plan (1) Right lower lobe lung mass: Rapidly evolving lung mass now seems much more discretely malignant with any pulmonary changes probably more postobstructive. Patient scheduled for biopsy tomorrow and this will obviously be pivotal. 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 While the recurrence in the right middle lobe was not particularly large and fully resected in October of this year, that recurrence within 1 year first presentation certainly is suggestive of an aggressive clinical course in parallel with the histologic aggression with which she first presented. As above, highly suspicious that the lung process represents further recurrence of the sarcoma. Biopsy is pending tomorrow. If we confirm metastatic sarcoma she may be well served by home coordinator review at a quaternary center before committing to a final salvage approach. Given the size of the lesion not clear that she is functionally good candidate for surgical resection or a priori radiation at least without some significant cy toreduction. She has had two-dimensional imaging apparently somewhat recently in the abdomen but it might be worthwhile redoing that to see if there is been any more rapid growth there. Need to confirm the results of the previous imaging and the specific timing. Overall prognosis is challenging and all the more reason for quaternary center review to explore not just standard but potential investigational options with which are presumably recurrent/metastatic sarcoma can be approached. (3) Leg edema, left: No DVT. Patient reports that she had had some recent two-dimensional imaging apparently had [facility] but given the rapid onset of changes in the lung, we may need to about whether we need to further look at her abdomen to see if disease there is obstructing. Alternative hypothesis is that the lung lesion is changing right heart dynamics and causing a generalized backup edema. (4) Anemia: Anemia he has hypoproductive with inappropriately low reticulocyte count, B12 and folic acid levels are in good range, normocytic but with suggestion of significant decreased iron stores as reflected by low serum iron and % sat. Ferritin levels are pending but any elevation there may be a nonspecific acute phase reactant. LDH is marginally elevated more reflective of the tissue mass in the chest than of any hemolysis given the low reticulocyte count as above With certainly we will support with transfusion if hemoglobin falls below 7.5 g/dL. Pending review of ferritin results, we will likely recommend iron infusion as well. Concern has to be why she is suddenly so iron deficient without any reported GI or external blood loss. Have to be concerned whether there may be hemorrhage into the lung mass and/or call into the abdomen Plan 1. Lung biopsy will be pivotal in confirming our suspicion of aggressive localized recurrence of her sarcoma 2. Need to get more complete details from [facility] including recent abdominal imaging 3. If the biopsy is positive may need to consider whether abdominal/pelvic restaging studies are worthwhile given the rapid changes over time in the lung 4. Would greatly benefit from a quaternary center review prior to making final decisions regarding any salvage therapy. Rather than return to [facility] she might prefer to seek input from [facility] or other [facility] quaternary center. Although she is quite pleased with initial care at [facility], she does note that they indicated they have little to offer in terms of experimental treatments which may be particularly important for a relatively younger woman who is so aggressively relapse after appropriately intense initial therapy 5. Transfusion support as needed for her red cells as above while we await ferritin levels to make a determination as to the role for iron infusion 6. May need to suspect internal bleeding contributing to the anemia/iron deficiency. History of Present Illness Reason for Consultation: Previous right thigh pleomorphic sarcoma status post radiation chemotherapy but ultimate right leg amputation who now has a rapidly evolving large mass in the lung Attending Physician: Mundo Cronin DO History of Present Illness Patient and her seem to be excellent historians. She was apparently originally diagnosed in September, with a high-grade pleomorphic sarcoma of the right leg. On initial treatment was at [facility] where she received Adriamycin/ifosfamide/mesna (AIM) and RT but ultimately was recommended for right leg amputation. In follow-up an isolated lung lesion was noted in the right middle lobe and she was status post resection of that nodule at [facility] in October of this year She had moved temporarily to the [facility] and sought further evaluation at [facility] in the interim since her first diagnosis where she was followed by the dedicated sarcoma team. They apparently had done a "routine" screening PET scan in January that was unremarkable but more recently she has had rapid evolution of right hemithorax changes. In the context of the negative PET scan in January, her [facility] oncology team at first thought that the very rapid changes signal been infection and she was treated with a series of antibiotics but with only ongoing worsening of the findings in the right hemithorax. She has been with fever, fatigue, anemia, and imaging showing a large right chest mass. She has no history of smoking, unusual occupational exposures, or any suggestion of other malignancy besides her previously diagnosed STS Allergies Allergy/AdvReac Type Severity Reaction Status Date / Time ibuprofen Allergy Severe TONGUE, Verified 06/02/23 17:26 THROAT, MOUTH SWELLS NSAIDS (Non-Steroidal Allergy Severe TONGUE, Verified 06/02/23 17:26 Anti-Inflamma THROAT, MOUTH SWELLS shellfish derived Allergy Severe TONGUE, Verified 06/02/23 17:26 THROAT, MOUTH SWELLS ifosfamide AdvReac Severe CONFUSION/H Verified 06/02/23 17:26 ALLUCINATIO NS Home Medications Medication Instructions Recorded Confirmed Type acetaminophen 500 mg tablet 1,000 mg PO DIRECTED PRN Pain 06/02/23 06/02/23 History (Tylenol Extra Strength) Patient History Social History Smoking Status: Never smoker Hx Alcohol Use: No Hx Substance Use: No Preferred Language: Syriac Communication Ability: Effective Scientific Advisor Required: No Beliefs That Will Affect Care: None Current Living Situation: Spouse Feels Safe at Home: Yes Assistive Devices: Lift Chair, Prosthesis, Stair Lift, Walker and Wheelchair Physical Exam Physical Exam: Vital signs stable noting adequate oxygenation on 2 L nasal cannula and a mild tachycardia. She is alert and seems comfortable at rest in bed though slightly anxious. There are no clear pathological lymph nodes in the cervical supraclavicular or axillary regions Lungs show decreased breath sounds on the right side but she is moving air well without use accessory muscles or tachypnea on the left The abdomen seems currently benign Right leg amputation, left lower extremity shows some diffuse edema but without clear compression tenderness or cords Neurologic exam seems nonfocal except for the inability to test right lower extremity given her previous amputation Results & Data Vital Signs (Past 12 Hours) Vital Signs Temp Pulse Pulse Resp BP Pulse Ox O2 Del Method 06/03/23 19:40 Nasal Cannula 06/03/23 19:00 36.9 C 103 H 18 124/75 97 Nasal Cannula 06/03/23 13:55 104 H 06/03/23 15:33 37.4 C 105 H 18 100/65 96 Nasal Cannula 06/03/23 13:34 Nasal Cannula 06/03/23 12:56 37.1 C 114 H 18 96/59 L 90 Room Air O2 Flow Rate 06/03/23 19:40 2 06/03/23 19:00 06/03/23 13:55 06/03/23 15:33 2 06/03/23 13:34 2 06/03/23 12:56 Laboratory Results Laboratory Results - last 24 hr 06/02/23 06/03/23 06/03/23 17:14 00:46 03:52 WBC 13.66 H RBC 2.96 L Hgb 7.6 L Hct 25.3 L MCV 85.5 MCH 25.7 MCHC 30.0 L RDW Std Deviation 47.8 H RDW Coeff of Az 15.4 H Plt Count 516 H MPV 8.7 L Reticulocyte % (Auto) Reticulocyte # Peripher Smr Path Cons PT 11.9 INR 1.1 Sodium Potassium Chloride Carbon Dioxide Anion Gap BUN Creatinine Est Cr Clr Drug Dosing Est GFR ( Amer) Est GFR (Non-Af Amer) BUN/Creatinine Ratio Glucose Calcium Phosphorus Magnesium Iron TIBC Unsaturated IBC Transferrin % Sat Lactate Dehydrogenase Lipase 6 L Vitamin B12 Folate Nasal Screen MRSA (PCR) Blood Type Antibody Screen 06/03/23 06/03/23 06/03/23 03:52 03:52 04:00 WBC RBC Hgb Hct MCV MCH MCHC RDW Std Deviation RDW Coeff of Az Plt Count MPV Reticulocyte % (Auto) Reticulocyte # Peripher Smr Path Cons PT INR Sodium 136 Potassium 3.6 Chloride 101 Carbon Dioxide 28 Anion Gap 7 BUN 9 Creatinine 0.49 L Est Cr Clr Drug Dosing 141.6 Est GFR ( Amer) 126.2 Est GFR (Non-Af Amer) 108.9 BUN/Creatinine Ratio 18.4 Glucose 123 H Calcium 8.2 L Phosphorus 3.9 Magnesium 2.2 Iron TIBC Unsaturated IBC Transferrin % Sat Lactate Dehydrogenase Lipase Vitamin B12 Folate Nasal Screen MRSA (PCR) Negative Blood Type Antibody Screen 06/03/23 06/03/23 06/03/23 08:01 17:35 17:35 WBC RBC Hgb Hct MCV MCH MCHC RDW Std Deviation RDW Coeff of Az Plt Count MPV Reticulocyte % (Auto) 2.7 H Reticulocyte # 0.08 Peripher Smr Path Cons PT INR Sodium Potassium Chloride Carbon Dioxide Anion Gap BUN Creatinine Est Cr Clr Drug Dosing Est GFR ( Amer) Est GFR (Non-Af Amer) BUN/Creatinine Ratio Glucose Calcium Phosphorus Magnesium Iron 11 L TIBC 168 L Unsaturated IBC 157 Transferrin % Sat 7 L Lactate Dehydrogenase Lipase Vitamin B12 Folate Nasal Screen MRSA (PCR) Blood Type O Positive Antibody Screen NEGATIVE 06/03/23 06/03/23 17:35 17:35 WBC RBC Hgb Hct MCV MCH MCHC RDW Std Deviation RDW Coeff of Az Plt Count MPV Reticulocyte % (Auto) Reticulocyte # Peripher Smr Path Cons PT INR Sodium Potassium Chloride Carbon Dioxide Anion Gap BUN Creatinine Est Cr Clr Drug Dosing Est GFR ( Amer) Est GFR (Non-Af Amer) BUN/Creatinine Ratio Glucose Calcium Phosphorus Magnesium Iron TIBC Unsaturated IBC Transferrin % Sat Lactate Dehydrogenase 266 H Lipase Vitamin B12 318 Folate 9.61 Nasal Screen MRSA (PCR) Blood Type Antibody Screen Diagnostic Findings Chest X-Ray 06/02/23 13:24 XR chest 1V not portable HISTORY: Sepsis COMPARISON: None. FINDINGS: No pneumothorax. There are low lung volumes. The cardiac silhouette is mildly enlarged. There is mild central pulmonary vascular congestion without overt edema. Volume loss noted within the right hemithorax with suture material at the right hilum suggestive of postoperative change. There is a small to moderate right pleural effusion. Right perihilar density may be due to the layering pleural fluid and/or consolidation within the right lung. IMPRESSION: 1. Small to moderate right pleural effusion. Right perihilar density may be due to the layering pleural fluid and/or consolidation. 2. Mild cardiomegaly with mild congestive change. 3. Postoperative changes within the right lung. ACT 112: Negative or not required by law. Electronically signed by: Darin Wu M.D. 06/02/2023 3:51 PM Chest CTA 06/02/23 17:23 CT angio chest PE protocol CT DOSE: 1760.63 mGy.cm HISTORY: 58 years-old Female with SOB, leg swelling, hx of sarcoma, WBC 11k. Acute shortness of breath TECHNIQUE: Multiple CTA images of the chest were obtained after the intravenous administration of 91 ml Optiray. Coronal and sagittal MIPS were obtained from the axial data set and were submitted for review. All measurements were obtained according to NASCET criteria. A dose lowering technique was utilized adhering to the principles of ALARA. COMPARISON: 06/02/2023. FINDINGS: CTA: Heart is normal in size. No pericardial effusion. Mild coronary artery david cifications. Mild atherosclerosis of the thoracic aorta without aneurysm. Suboptimal opacification of the pulmonary arterial tree secondary to contrast bolus timing. Compression of the IVC secondary to the large masses below. Prominence of the azygos vein. CT CHEST: No thyroid nodule. Calcified and partially outside lymph nodes of the chest include a 2.2 x 1.6 and right paratracheal lymph node on image 156. Noncalcified subcarinal lymphadenopathy measures up to 1.2 cm. There is a large heterogeneous partially necrotic mass in the right hemithorax appears to be extra pulmonary and is likely pleural-based measuring up to 13 x 12 x 16 cm. The craniocaudal extension of the lesion is partially imaged. This large mass involves the posterior pleura and diaphragmatic surfaces extending along the right diaphragmatic arianna into the upper abdomen. There is mass effect with partial collapse of the right lower lobe. Small right pleural effusion. Areas of pleural thickening and enhancement noted within the right hemithorax. Postoperative changes of the right lung. Calcified nodules in the right hemithorax measure up to 5 mm. Noncalcified solid nodules of the right lung measure up to 4 mm. The left lung is generally clear. The central airways are patent. Hepatomegaly with hepatic steatosis. No acute fracture or destructive bone lesion identified. IMPRESSION: 1. Limited exam secondary to contrast bolus timing. No central pulmonary emboli identified. 2. Large partially imaged mass of the right hemithorax appears to be pleural- based and measures over 16 cm in greatest dimension suggestive of a malignant neoplasm. 3. Consolidation with partial collapse of the right lower lobe. 4. Small right pleural effusion with postoperative changes of the right lung. 5. Enlarged calcified and noncalcified mediastinal and right hilar lymph nodes. 6. Several scattered subcentimeter calcified and noncalcified pulmonary nodules of the right lung. ACT 112: Negative or not required by law. The above report was generated using voice recognition software. It may contain grammatical, syntax or spelling errors. Electronically signed by: Bj Sorto M.D. 06/02/2023 6:26 PM Venous Doppler Study 06/02/23 17:23 Exam(s): US VENOUS LEFT LOWER EXTREMITY EXAM: US Duplex Left Lower Extremity Veins CLINICAL HISTORY: Edema. TECHNIQUE: Real-time duplex ultrasound scan of the left lower extremity veins integrating B-mode two-dimensional vascular structure, Doppler spectral analysis, color flow Doppler imaging and compression. COMPARISON: No relevant prior studies available. FINDINGS: Deep veins: Unremarkable. No DVT in the visualized common femoral, femoral, proximal deep femoral or popliteal veins. The veins demonstrate normal color flow, are normally compressible, with normal phasic flow and/or augmentation response. The interrogated calf veins are patent. Superficial veins: Unremarkable. No thrombus in the saphenofemoral junction. Soft tissues: No acute findings. No popliteal cyst. IMPRESSION: No evidence for deep vein thrombosis involving the left lower extremity. Electronically signed by: Sang Reed MD 06/02/23 21:44 PM PG Care Time/CCT Total # of Minutes Spent Total Time Spent with Patient: Total time spent is greater than 50% in coordination of care (as documented) at patient's floor/unit and/or counseling patient: Coding Level of Care Code 69952 IN/OBS CONSULT LVL 4,60M Medical Decision Making High Complexity Diagnoses Right lower lobe lung mass R91.8 History of sarcoma Z85.831 Leg edema, left R60.0 Anemia D64.9
--- NOTE | 2023-06-04 02:21 | Billing Data ---
Date of Service June 04, 2023 Coding Level of Care Code 87051 INT INP/OBS CARE
[2023-06-04] MEDS: LACTATED RINGER'S 1,000 ML IV SCH ×3 (04:28→22:33)
[2023-06-04] MEDS: CEFEPIME 2,000 MG in SYRINGE 0 ML IV SCH ×3 (04:28→20:17)
--- NOTE | 2023-06-04 06:52 | Hospitalist Progress Note ---
Date of Service June 04, 2023 Assessment & Plan (1) Right lower lobe lung mass: Plan: #Right lung mass -13 x 12 x 16 cm right lower lung mass discovered on chest CTA prior to admission in ED concerning for lung malignancy. -S/p IV cefepime 2 g in the ED. -10/31/2022: Metastatic nodule removed from right middle lobe via VATS wedge resection at [facility]. -02/13/2023: Total body PET scan negative no cancer detected. -03/23/2023: Onset of respiratory symptoms. Refractory to multiple antibiotics courses (doxycycline, azithromycin), supportive therapy. -05/14/2023: Lung consolidation on the right measuring approximately 7 cm long discovered on routine chest CT at [facility] etiology deemed to be most likely infectious by reviewing oncologist due to previously clear PET scan. -Patient unable to establish care with pulmonology since her got a new job at [employer]. Had been deferring ED visit due to the presumption that this was pneumonia. Only decided to come in due to worsening back pain, nonresolution of fever, cough. -Strongly suspect malignant process, given previous history of sarcoma, persistence of symptoms in spite of multiple antibiotics courses, low-grade fever, and waxing/waning of respiratory symptoms coinciding with antibiotic courses. * IV Tylenol 1000 mg every 8 hours scheduled for right lower chest/RUQ pain. As needed IV hydromorphone for refractory pain. * Maintenance rate IV LR * Continue IV cefepime 2 g every 8 hours. Blood culture report pending. Will trend WBC daily * Pulmonology consulted; Pt to undergo biopsy of the intrathoracic chest mass today at 8:30 AM and EBUS at noon, #Anemia -Hemoglobin 8.8 in ER prior to admission -> 7.6 - Likely chronic, as suggested by increased ferritin level; no overt signs of bleeding -History of sarcoma, though patient last treated with chemoradiation in November 2021. - today, hgb was 7.2 - will recheck hemoglobin and hematocrit later today after procedures at 2:30 pm #Hypokalemia -3.2 on admission. S/p repletion in the ED with IV KCl x10 mEq. * Repleted with IV KCl rider x40 mEq * Trend a.m. BMP. Replete as indicated. * Today K+ was 3.4, will replete by IV KCl rider * #Edema of left lower leg -No venous clot seen on Doppler performed prior to admission. -Area of mild erythema, though without tenderness to palpation, fluctuance, or ulcerations. -WBC only mildly elevated at 11 on admission, procalcitonin within normal limits. Low suspicion for cellulitic process, though will continue monitor. #Thrombocythemia -Unclear whether acute or chronic. Platelet count of 580 discovered in the ED prior to admission. 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 -Received 25 rounds of radiation treatment to the thigh and 3 rounds of chemotherapy (doxorubicin, ifosfamide, mesna) at [facility] between September 2021- November 2021. -Complete removal of right leg including femur on 01/16/2022. Per patient, clear margins achieved, 99% tumor necrosis. Surgery performed by Dr. Jam Candelaria at [place]. -Discovery of right middle lung nodule x1 determined to be metastasis of sarcoma. Nodule resected via VATS wedge surgery. Procedure performed by Dr. Daron Rogers at [facility]. Subsequent PET scan on 02/13/2023 clear (no cancer detected). * Oncology consult placed, as patient would like to establish care. Could be managed outpatient, though given uncertainty regarding potential malignant lung mass, inpatient oncological evaluation seems practical. Code:Full code Dispo:Med-Surg telemetry FEN/GI:NPO. IV LR @maintenance rate DVT Prophylaxis:Heparin 5000 u q12h PT/OT:Yes Consults:Pulmonology. Oncology. Case Management:Yes (2) Leg edema, left: (3) Anemia: (4) Acute hypokalemia: (5) Thrombocythemia: Admission and Anticipated Discharge Date Admission Date: June 02, 2023 Supervising Physician Co-Signing Physician Notes I personally examined the patient and verified all hanson points of history and exam, discussed case, and agree with decision making with Dr Cunha feeling ok post biopsy. breathing ok. vitals noted nad heent nc at mmm breathing unlabored no accessory muscles good effort skin no rashes no pallor or icterus hypoxia - from mass, likely to need O2 at home - work on setting up mass -unfortunately likely recurrence of sarcoma. biopsies done, results pending, opts to f[facility] - will ask navigator to assist in this otherwise as above, hopefully home, close outpt f/u tomorrow Subjective Pt is a 58 yo female with past medical history of grade 3 sarcoma of the right leg (s/p removal of right LE) with right lung mets (s/p wedge resection) who presented on 06/02/23 for persistent respiratory symptoms concerning for pneumonia refractory to antibiotic treatments. Today, patient states she is feeling okay, just a bit nervous for the day today given that the biopsy will be later this morning. Otherwise, she states she is doing well. She states that her back pain has subsided since she got Dilaudid yesterday, and that she has not needed any since. No chest pain or SOB today. No lightheadedness. No nausea or vomiting. No further questions or complaints at this time. Review of Systems Review of Systems: Per HPI. Physical Exam Physical Exam: General:Alert and oriented, no acute distress, Cardio: Regular rate and rhythm, no murmur, Resp:Lungs clear to auscultation b/l, no wheezes or rhonchi, Skin: Warm, pink, dry, Psych: Mood-affect congruence. Results & Data Results & Data Vital Signs (Past 12 Hours) Vital Signs Temp Pulse Pulse Resp BP Pulse Ox O2 Del Method 06/04/23 04:34 108 H 102/51 L 95 Nasal Cannula 06/04/23 02:33 37.2 C 118 H 16 100/49 L 93 Nasal Cannula 06/04/23 00:20 111 H 06/03/23 23:11 37.1 C 102 H 18 110/71 94 Room Air 06/03/23 19:40 Nasal Cannula 06/03/23 19:00 36.9 C 103 H 18 124/75 97 Nasal Cannula O2 Flow Rate 06/04/23 04:34 2 06/04/23 02:33 2 06/04/23 00:20 06/03/23 23:11 06/03/23 19:40 2 06/03/23 19:00 Resident Activity Tracking Resident Involvement: Resident Care Provided Care Provided: Adult Hospital Medicine
[2023-06-04 07:04] LABS: Hematocrit (blood only) 24.1 % (37.0-47.0); Hemoglobin 7.2 g/dl (12.0-16.0); Mean Corpuscular Hemoglobin 26.2 pg (25.0-34.0); Mean Corpuscular Hgb Conc 29.9 g/dL (32.0-36.0); Mean Corpuscular Volume 87.6 fL (80.0-100.0); Mean Platelet Volume 8.6 fL (9.4-12.4); Platelet Count 496 K/uL (130-400); RDW Coefficient of Variation 15.7 % (11.5-14.5); RDW Standard Deviation 49.7 fL (36.4-46.3); Red Blood Count 2.75 M/uL (4.20-5.40); White Blood Count 13.23 K/ul (4.8-10.8)
[2023-06-04 07:16] LABS: BUN Creatinine Ratio 18.6 (10-20); Calcium 8.1 mg/dl (8.6-10.3); Creatinine Clr Calc Pharmacy 157.4 ml/min; Est GFR (African American) 131.8 ml/min; Est GFR (Non-African American) 113.7 ml/min; Potassium 3.4 mmol/L (3.5-5.1)
[2023-06-04 07:36] LABS: Ferritin 594.8 ng/ml (8-388)
[2023-06-04] MEDS ORDERED: fentaNYL citrate PF 100 MCG/2 ML VIAL ONE ×2 (08:38→10:19)
[2023-06-04] MEDS ORDERED: MIDAZOLAM HCL 5 MG/ML 1 ML VIAL ONE (10:18)
--- NOTE | 2023-06-04 10:25 | XRay Report ---
XR chest 1V not portable HISTORY: s/p rt chest wall biopsy COMPARISON: Chest CTA 06/02/2023. FINDINGS: No pneumothorax. A small right pleural effusions have slightly increased in size. Right bas ilar densities have progressed. A large right lower pleural-based mass is again noted. The left lung is clear. The heart is stable in size. IMPRESSION: 1. No pneumothorax. 2. Small right pleural effusion has slightly progressed. 3. The right lower pleural-based mass is again noted. ACT 112: Negative or not required by law. Electronically signed by: Darin Wu M.D. 06/04/2023 10:24 AM
--- NOTE | 2023-06-04 11:38 | Pre Anesthesia Assessment ---
Date of Service June 04, 2023 Pre Sedation Assessment Vital Signs Temp Pulse Pulse Resp BP Pulse Ox O2 Del Method 06/04/23 11:19 Room Air 06/04/23 10:24 126 H 26 H 119/78 95 Oxymask 06/04/23 09:58 16 116/66 91 Room Air 06/04/23 08:51 115 H 06/04/23 07:19 37.0 C 118 H 16 108/54 L 95 Room Air 06/04/23 04:34 108 H 102/51 L 95 Nasal Cannula 06/04/23 02:33 37.2 C 118 H 16 100/49 L 93 Nasal Cannula 06/04/23 00:20 111 H 06/03/23 23:11 37.1 C 102 H 18 110/71 94 Room Air 06/03/23 19:40 Nasal Cannula 06/03/23 19:00 36.9 C 103 H 18 124/75 97 Nasal Cannula 06/03/23 13:55 104 H 06/03/23 15:33 37.4 C 105 H 18 100/65 96 Nasal Cannula 06/03/23 13:34 Nasal Cannula 06/03/23 12:56 37.1 C 114 H 18 96/59 L 90 Room Air O2 Flow Rate 06/04/23 11:19 06/04/23 10:24 3 06/04/23 09:58 06/04/23 08:51 06/04/23 07:19 06/04/23 04:34 2 06/04/23 02:33 2 06/04/23 00:20 06/03/23 23:11 06/03/23 19:40 2 06/03/23 19:00 06/03/23 13:55 06/03/23 15:33 2 06/03/23 13:34 2 06/03/23 12:56 Pre-Sedation Airway Assessment Smoking Status: Never smoker Hx Sleep Apnea: No Short, Thick Neck: No Thyromental Distance: > or= 3.5 Finger Breadths Oral Cavity: + WNL Mallampati Class: III ASA: ASA3 NPO Status Date of Last Intake of Fluids: 06/03/23 Time of Last Intake of Fluids: 22:00 Date of Last Intake of Solid Food: 06/03/23 Time of Last Intake of Solid Foods: 18:00 Notes The planned sedation has been discussed with the patient. Informed Consent was obtained. I have identified the patient, determined the appropriateness of sedation and have assessed the patient immediately prior to the procedure. All medicine(s) and interventions are by my order.
--- NOTE | 2023-06-04 11:38 | Pulmonology Progress Note ---
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 RECOMMENDATIONS: 1. Intrathoracic chest mass -await results of ultrasound guided transthoracic needle aspiration. N.p.o. for bronchoscopy with endobronchial ultrasound and transbronchial needle aspiration today to complete staging. Will need outpatient PET scan. Reviewed oncology consultation and agree with her assessment plan as noted. 2. After the bronchoscopy is completed, the patient can be dismissed from the hospital from a pulmonary perspective. She can follow-up with oncology regarding her biopsy results. Feel free to contact us with additional questions or concerns. Admission and Anticipated Discharge Date Admission Date: June 02, 2023 Subjective Patient seen and examined. EMR reviewed. The patient is without any new chest complaints. She did undergo a ultrasound-guided biopsy of the chest wall mass transthoracically earlier today. She is n.p.o. for bronchoscopy with endobronchial ultrasound and transbronchial needle aspiration. She does not report any fevers chills night sweats or other constitutional symptoms. Review of Systems Review of Systems: Unchanged from prior Physical Exam Physical Exam: VITAL SIGNS - Vital signs and nursing notes were reviewed. GENERAL - 58-year-old female appearing her stated age who is in no acute distress. Communicates well with provider and answers questions appropriately. SKIN - Without rashes or lesions. NOSE - Midline and without cyanosis. MOUTH/OROPHARYNX - Without perioral cyanosis. LUNGS - Auscultation reveals absent breath sounds at the RIGHT lung base. No adventitious breath sounds noted throughout the remainder of lung yen. CARDIAC - RRR with S1/S2. No murmur, rubs, or gallops appreciated. ABDOMEN - Abdominal inspection demonstrates an obese abdomen. BS normoactive all four quadrants. No tenderness, palpable masses, or ascites noted. EXTREMITIES - LLE and bilateral UE peripheral edema. +3/5 radial palpated throu ghout. PSYCH - A&Ox3 and cooperates fully with examiner. Pt is very pleasant and interacts well with examiner. Results & Data Results & Data Vital Signs (Past 12 Hours) Vital Signs Temp Pulse Pulse Resp BP Pulse Ox O2 Del Method 06/04/23 11:19 Room Air 06/04/23 10:24 126 H 26 H 119/78 95 Oxymask 06/04/23 09:58 16 116/66 91 Room Air 06/04/23 08:51 115 H 06/04/23 07:19 37.0 C 118 H 16 108/54 L 95 Room Air 06/04/23 04:34 108 H 102/51 L 95 Nasal Cannula 06/04/23 02:33 37.2 C 118 H 16 100/49 L 93 Nasal Cannula 06/04/23 00:20 111 H O2 Flow Rate 06/04/23 11:19 06/04/23 10:24 3 06/04/23 09:58 06/04/23 08:51 06/04/23 07:19 06/04/23 04:34 2 06/04/23 02:33 2 06/04/23 00:20 Laboratory Results 06/04/23 06:10 06/04/23 06:10 Diagnostic Findings No new imaging PG Care Time/CCT Total # of Minutes Spent Total Time Spent with Patient: Total time spent is greater than 50% in coordination of care (as documented) at patient's floor/unit and/or counseling patient: Coding Level of Care Code 57201 SUB INP/OBS CARE 2/35MIN Diagnoses Right lower lobe lung mass R91.8 History of sarcoma Z85.831
--- NOTE | 2023-06-04 12:19 | Post Anesthesia Assessment ---
Date of Service June 04, 2023 Post Sedation Assessment Vital Signs Temp Pulse Pulse Resp BP Pulse Ox O2 Del Method 06/04/23 12:05 132 H 18 102/64 97 Oxymask 06/04/23 12:00 120 H 18 124/69 96 Oxymask 06/04/23 11:55 120 H 18 107/67 96 Oxymask 06/04/23 11:50 124 H 18 120/76 95 Oxymask 06/04/23 11:45 121 H 18 124/66 95 Oxymask 06/04/23 11:40 122 H 18 113/73 99 Oxymask 06/04/23 11:19 Room Air 06/04/23 10:24 126 H 26 H 119/78 95 Oxymask 06/04/23 09:58 16 116/66 91 Room Air 06/04/23 08:51 115 H 06/04/23 07:19 37.0 C 118 H 16 108/54 L 95 Room Air 06/04/23 04:34 108 H 102/51 L 95 Nasal Cannula 06/04/23 02:33 37.2 C 118 H 16 100/49 L 93 Nasal Cannula 06/04/23 00:20 111 H 06/03/23 23:11 37.1 C 102 H 18 110/71 94 Room Air 06/03/23 19:40 Nasal Cannula 06/03/23 19:00 36.9 C 103 H 18 124/75 97 Nasal Cannula 06/03/23 13:55 104 H 06/03/23 15:33 37.4 C 105 H 18 100/65 96 Nasal Cannula 06/03/23 13:34 Nasal Cannula 06/03/23 12:56 37.1 C 114 H 18 96/59 L 90 Room Air O2 Flow Rate 06/04/23 12:05 15 06/04/23 12:00 15 06/04/23 11:55 15 06/04/23 11:50 15 06/04/23 11:45 3 06/04/23 11:40 3 06/04/23 11:19 06/04/23 10:24 3 06/04/23 09:58 06/04/23 08:51 06/04/23 07:19 06/04/23 04:34 2 06/04/23 02:33 2 06/04/23 00:20 06/03/23 23:11 06/03/23 19:40 2 06/03/23 19:00 06/03/23 13:55 06/03/23 15:33 2 06/03/23 13:34 2 06/03/23 12:56 Discharge Sedation Level of Care: Fast Track Phase II Post Sedation Plan On clinical assessment, the patient appears to have tolerated the sedation without complications. Patient is recovering as anticipated. Patient will continue to be monitored by nursing and may be discharged when sedation discharge criteria are met per below protocol. Upon Completions of procedure up to 15 minutes continue every 5 minute vital signs and the P.A.R. score; then discharge to a Phase I or Fast Track to Phase II per the following guidelines: * Discharge Patient to appropriate Phase II area if PAR is 8 or greater or return to pre- procedure baseline. The post - procedure orders will be as directed. * If PAR score is less than 8 or not return to pre-procedure baseline then patient will follow Phase I monitoring till PAR is reached for Phase II. The Phase I may be done in procedure room or may call to secure a Phase I area. * If naloxone or flumazenil are used for reversal, hold in Phase I for continued monitoring from when last reversal dose was given for a minimum of 60 minutes or longer pending the nurse and/or physician discretion of patient condition before discharge to Phase II. Please call the Sedation Physician to re-evaluate and complete post-note for discharge to Phase II area. Do NOT discharge from procedure sedation or Phase 1 until post- sedation evaluation note is complete by procedure /sedation MD Sedation Discharge Instructions to be given to the patient at discharge to home.
--- NOTE | 2023-06-04 12:24 | Procedure Note ---
Procedure Note Date of Service June 04, 2023 Note Procedure: Fiberoptic bronchoscopy Endobronchial ultrasound with transbronchial needle aspiration of lymph nodes Conscious sedation Provider: Cheo Em MD Consent: Signed by patient and timeout verified prior to procedure. Sedation start: 1135 Sedation end: 1206 Conscious sedation: 150 mcg fentanyl, 6 mg Versed, topical lidocaine per RT protocol Indication: Abnormal CT scan Estimated blood loss: Less than 5 mL Procedure: Patient was brought to the bronchoscopy suite. Consent was verified. Appropriate radiographic studies had been reviewed prior to the procedure. Standard monitoring was applied. Oxygen was administered. After topical anesthesia of the airways per respiratory therapy protocol, the fiberoptic scope was advanced through the oropharynx via the bite-block. Oropharynx was unremarkable. Vocal cords were visualized and were normal in function and appearance. Topical anesthesia of the cords was achieved with instillation of lidocaine through the scope. Scope was then passed through the vocal cords. The trachea was midline. Main ryder was slightly splayed. Anesthesia of the lower airways was achieved with instillation of lidocaine through the scope. A sequential and systematic examination of the lower airways was conducted. The right-sided airways were patent with the exception of a right middle lobectomy. The staple site appeared intact. See photos. Right upper lobe and right lower lobe were anatomically patent and the mucosa appeared normal. Left-sided airways were normal in anatomic configuration widely patent and the mucosa appeared normal. After the inspection bronchoscopy was completed, the fiberoptic bronchoscope was removed from the airway and the endobronchial ultrasound advanced through the vocal cords via the bite-block. A brief survey was conducted demonstrating adenopathy within the level 7 and level 4 stations corresponding to the abnormal CT scan. Using a 21-gauge needle and under direct ultrasound visualization, fine-needle aspiration was conducted of level 7 lymph node station and level 4R lymph node station. Rapid onsite cytologic evaluation confirmed lymphocytes in both samples. The patient was having transient oxygen desaturations and exhibiting significant coughing so additional lymph node biopsies were not taken at that time and the scope was removed. The bronchoscope was then removed from the airways. The patient tolerated the procedure well without obvious complication. Patient was returned to the recovery room. Impression: 1. Normal inspection bronchoscopy status post right middle lobe resection with staple line intact. 2. Pathologic adenopathy identified within the 4R and level 7 lymph node station status post fine-needle aspiration with 21-gauge needle, await cytology. If the patient were to have PET positive lymph nodes on the outpatient PET scan outside of these areas, could consider repeat endobronchial ultrasound with transbronchial needle aspiration although this may need to be conducted in the OR due to the patient's significant gag reflex and issues with sedation Coding CPT Codes Pulmonary/Thoracic - Pulmonary and Thoracic: 63063 Bronchoscopy, w/EBUS 1 or 2 mediastinal ([id number]) Sedation/Anesthesia - Sedation/Anesthesia: 30336 Mod Sedation by the same physician;Init15 Min Child Age 5 & Up ([id number]) Sedation/Anesthesia - Sedation/Anesthesia: 05056 Mod Sedation by the same physician; Ea [id number] Minutes ([id number]) [facility] [place] Codes (Charges) Pulmonary/Thoracic Procedure 1: Pulmonary and Thoracic: 34959 Bronchoscopy, w/EBUS 1 or 2 mediastinal Sedation/Anesthesia Procedure 2: Sedation/Anesthesia: 46973 Mod Sedation by the same physician;Init15 Min Child Age 5 & Up Total Sedation Time (minutes): 31 Procedure 3: Sedation/Anesthesia: 30057 Mod Sedation by the same physician; Ea [id number] Minutes
[2023-06-04] MEDS: POTASSIUM CHLORIDE / WTR 10 MEQ/100 ML PLCT IV SCH ×2 (13:12→15:26)
--- NOTE | 2023-06-04 14:42 | Ultrasound Report ---
Ultrasound-guided right chest wall mass core biopsy INDICATION: Complex right posterior chest wall mass; history of metastatic sarcoma PROCEDURE: Procedure and risks were explained. Informed consent was obtained. A final timeout was com pleted. The right posterior thorax was prepped and draped in sterile fashion. 1% buffered lidocaine w as utilized for skin anesthesia. Utilizing ultrasound guidance, a 17-gauge coaxial needle was advanced into the complex right posterio r chest wall mass. Ultrasound images were obtained. An 18-gauge core biopsy needle was advanced, and 3 cores were obtained and given to the pathologist for review. Approximately 8 mL of blood-tinged flu id was aspirated during the removal of the coaxial needle and also sent to the lab for analysis. The patient tolerated the procedure well. Vital signs will be monitored postprocedure and a chest x-ray w ill be obtained. IMPRESSION: Right chest wall mass core biopsy as detailed above. Performed, dictated, and signed by Sang Nguyen PA-C; to be co-signed by Dr. Darin Wu. Electronically signed by: Darin Wu M.D. 06/04/2023 2:57 PM
[2023-06-04 15:09] LABS: Hematocrit (blood only) 24.5 % (37.0-47.0); Hemoglobin 7.3 g/dl (12.0-16.0)
--- NOTE | 2023-06-04 17:48 | Billing Data ---
Date of Service June 04, 2023 Coding Level of Care Code 40772 SUB INP/OBS CARE
[2023-06-04] MEDS: ACETAMINOPHEN 500 MG TAB PO PRN (22:31)
[2023-06-05] MEDS: CEFEPIME 2,000 MG in SYRINGE 0 ML IV SCH (05:00)
--- NOTE | 2023-06-05 07:00 | Discharge Summary ---
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 Jam Candelaria]) and subsequent right lung metastasis (s/p VATS wedge resection of right middle lobe on 10/31/[address] Daron Ibanez at [facility] [facility]). She presents to the emergency room with persistent back pain, fever, and rhinorrhea since 03/23/2023. Patient reports symptoms began on 03/23 with cough, rhinorrhea, fever, throat pain, as well as "muscle aches in the back." She managed her symptoms with OTC Mucinex DM after which her symptoms resolved, save for rhinorrhea, which lasted for 3 weeks and precipitated visit to urgent care on 04/16. She received prescription for doxycycline x10 days for possible pneumonia, which she completed. She reports her back pain improved at that time, though developed swelling in her hands and foot. She reports her fever and back pain returned about 3 days after completing doxycycline course. She presented to the same urgent care ([facility] in [place]) with a complaint of persistent fevershe was diagnosed with a viral infection and discharged home with instructions for trial of supportive therapy (Mucinex, oral hydration, etc.). When her symptoms did not improve, she contacted her oncologist at [facility] (Dr. Rosario [facility]) they recommended coming in for a chest CT scan. CT scan performed 05/14/2023 revealed right lower lung mass measuring approximately 7 cm, but was told by oncologist that mass was likely 2/2 infection given its rapid growth, and not likely to be malignant (no cancer detected at last PET scan on 02/13/2023). Oncologist also recommended evaluation by doubler operator back at home in [place]. She received 10-day course of azithromycin 500 mg at [facility] on 05/21/2023. Patient continued to report progressively worsening upper back pain, fever, night sweats, and malaise so her suggested she come to the ER for immediate evaluation. In the ED, vitals were notable for tachycardia to the 110s-120s. WBC was mildly elevated at 11.9. Anemia of 8.8 was also noted, as was thrombocytosis with a platelet count of 580K. She was also mildly hypokalemic (3.2) and hypocalcemic (8.2). Alk phos-165, lipase-6, lactate-1.2. Chest CTA revealed a "large heterogenous partially necrotic mass in the right hemithorax [that] appears to be extrapulmonary and is likely pleural-based measuring up to 13 x 12 x 16 cm." The mass involved the posterior pleura and diaphragmatic surfaces extending along right diaphragmatic arianna into the upper abdomen. Mass effect with partial collapse of right lower lobe, and a small right pleural effusion were noted on imaging. She received a dose of IV cefepime and IV Dilaudid, as well as 10 mEq of potassium chloride. Hospitalist service was then consulted for admission. On admission, she denies headache, shortness of breath, chest pain, nausea, flank pain, dysuria, or hematuria. ROS + 2/10 RUQ pain, left leg swelling. Patient has no other chronic conditions and takes no medications, save for as needed Tylenol. She is a never smoker. Her last chemo session was November 2021. Admission Exam Per Admitting Provider General: Tired-appearing, but otherwise alert and interactive woman in no acute distress. HEENT: Normocephalic, atraumatic. EOM intact. Good conjugate gaze. Nares patent. Moist mucosal membranes. Neck: Supple. No lymphadenopathy. Normal ROM. CV: Tachycardic rate. Regular rhythm. Normal S1 and S2. No murmurs gallops or rubs. Respiratory: Normal respiratory effortspeaking in complete sentences. Diminished breath sounds on the right, greatest at lower and middle lobes. No crackles, rhonchi, or wheezes heard on auscultation. Abdomen: Soft, nondistended abdomen. No bruits heard on auscultation. No tenderness to deep palpation. No guarding or rebound. 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 Left LE intact. 2+ pedal edema to the mid-franklin on the left. Neuro: Alert and oriented x3. Skin: Mild erythema of left lower leg with indistinct borders. Principal Diagnosis Lung mass, hx sarcoma Discharge Exam General:Alert and oriented, no acute distress, Cardio: Regular rate and rhythm, no murmur, Resp:Lungs clear to auscultation b/l, no wheezes or rhonchi, Skin: Warm, pink, dry, Psych: Mood-affect congruence. Discharge Data Allergies Allergy/AdvReac Type Severity Reaction Status Date / Time ibuprofen Allergy Severe TONGUE, Verified 06/02/23 17:26 THROAT, MOUTH SWELLS NSAIDS (Non-Steroidal Allergy Severe TONGUE, Verified 06/02/23 17:26 Anti-Inflamma THROAT, MOUTH SWELLS shellfish derived Allergy Severe TONGUE, Verified 06/02/23 17:26 THROAT, MOUTH SWELLS ifosfamide AdvReac Severe CONFUSION/H Verified 06/02/23 17:26 ALLUCINATIO NS Consultations 06/02/23 20:46 ED Decision to Admit Stat 06/02/23 23:22 Consult Oncology Routine Consult Pulmonology Routine Procedures Performed Operation Date: 06/04/23 12:00 <No data on this case meets the specified criteria> Ordered Studies 06/02/23 17:23 CT for pulmonary embolism PE [CT angio chest PE protocol] Stat US venous doppler LE LT Stat 06/04/23 08:59 IR biops softtiss mass/musc US Urgent Hospital Course (1) Right lower lobe lung mass: #Right lung mass -CTA prior to admission: 13 x 12 x 16 cm right lower lung mass concerning for lung malignancy. -S/p IV cefepime 2 g in the ED. -10/31/2022: Metastatic nodule removed from right middle lobe via VATS wedge resection at [facility] [place]. -02/13/2023: Total body PET scan negative no cancer detected. -03/23/2023: Onset of respiratory symptoms. Refractory to multiple antibiotics courses (doxycycline, azithromycin), supportive therapy. -05/14/2023: Lung consolidation on the right measuring approximately 7 cm long discovered on routine chest CT at [facility] etiology deemed to be most likely infectious -Patient unable to establish care with pulmonology since her got a new job at [employer]. Had been deferring ED visit due to the presumption that this was pneumonia. Only decided to come in due to worsening back pain, nonresol ution of fever, cough. -Strongly suspect malignant process, given previous history of sarcoma, persistence of symptoms in spite of multiple antibiotics courses, low-grade fever, and waxing/waning of respiratory symptoms coinciding with antibiotic courses. * Pulmonology consulted; biopsy done, pt to follow-up outpatient #Anemia -Hemoglobin 8.8 in ER prior to admission -> 7.6 - Likely chronic, as suggested by increased ferritin level; no overt signs of bleeding -History of sarcoma, though patient last treated with chemoradiation in November 2021. - today, hgb was 7.5, stable #Hypokalemia -3.2 on admission, which was repleted via IV * Trend a.m. BMP. Replete as indicated. * Today K+ 3.0, will replete and send home with oral replacement with BMP ordered #Edema of left lower leg -No venous clot seen on Doppler performed prior to admission. -Area of mild erythema, though without tenderness to palpation, fluctuance, or ulcerations. -WBC only mildly elevated at 11 on admission, procalcitonin within normal limits. Low suspicion for cellulitic process, though will continue monitor. #Thrombocythemia -Unclear whether acute or chronic. Platelet count of 580 discovered in the ED prior to admission. 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 -Received 25 rounds of radiation treatment to the thigh and 3 rounds of chemotherapy (doxorubicin, ifosfamide, mesna) at [facility] between September 2021- November 2021. -Complete removal of right leg including femur on 01/16/2022. Per patient, clear margins achieved, 99% tumor necrosis. Surgery performed by Dr. Jam Candelaria at [facility]. -Discovery of right middle lung nodule x1 determined to be metastasis of sarcoma. Nodule resected via VATS wedge surgery. Procedure performed by Dr. Daron Rogers at [facility]. Subsequent PET scan on 02/13/2023 clear (no cancer detected). * Oncology consult placed, as patient would like to establish care. Could be managed outpatient, though given uncertainty regarding potential malignant lung mass, inpatient oncological evaluation seems practical. Code:Full code Consults:Pulmonology. Oncology. Case Management:Yes (2) Leg edema, left: (3) Anemia: (4) Acute hypokalemia: (5) Thrombocythemia: Total Time Total Time Spent Total Time Spent (In Minutes): <30 Discharge Plan Discharge Items Patient Disposition: Home - Self-Care Reason For Visit: PERSISTENT FLULIKE SYMPTOMS Discharge Diagnosis: Lung mass Activity: Per Instructions section Non-emergency contact: Primary Care Provider, Oncologist and Head Butler Call non-emergency contact if: you have any medication questions, your pain is not controlled and your temperature is above 101.5 Follow-up/Referrals: Sera Cunha, [Resident] - PCP,NO [Primary Care Provider] - Diet: Regular Ambulatory Orders: Basic Metabolic Panel (Routine) Timeframe: 1 Week Location: Determined by Patient Ordered By: Sera Cunha Addbhavana Attending Provider Instructions: You were admitted for symptoms of pneumonia refractory to outpatient treatment, found to have a lung mass. You were seen by pulmonology and hematology/oncology while inpatient, and a biopsy was done. We feel it is safe for you to return home and follow-up outpatient as the biopsy results. Medications: Your medication list has been reviewed and reconciled upon discharge to ensure accuracy and continuity of care. An updated list of all your medications is included with your hospital discharge paperwork. Please review this list closely, and make note of any changes. We also sent Potassium Chloride 20 mEq tablets to your pharmacy. You are to take Potassium Chloride 20 mEq once daily until f/u with your PCP within 1 week. This medication is to replete your potassium, which was low while you were admitted at the hospital. We also sent for a repeat BMP (metabolic panel) that you should get done 2-3 days before your appointment with a doctor after you've been discharged from the hospital. If you have any issues filling these prescriptions, please call [phone] and ask to leave a message for Dr. Cunha. Take your medications as instructed; do not skip a dose of your medicines. Make sure all of your doctors know every medicine you are taking (including [id number] medicines, vitamins, and supplements). Call your primary care provider before taking any new medicines (including over- the-counter medicines, vitamins, and supplements), because some of these may interact with your current medications, or may make your symptoms worse. Tell your primary care provider if you cannot afford your medications. Activity: You can do normal everyday activities as your body allows. Take rest breaks if you feel tired. Do not overexert. Stop activity if you have pain, shortness of breath or feel dizzy. Follow-up appointments: Make an appointment with your primary care physician within one week of discharge. A copy of this summary will be sent to them. Every time you see your primary care physician, or any other doctor, bring your medication list, a list of questions, and your recent weights. CONTACT YOUR PRIMARY CARE PROVIDER if you experience any of the following: Shortness of breath or difficulty breathing Swelling of your feet, ankles, hands or abdomen Feeling tired with normal activity or experiencing dizziness or fainting Difficulty following your treatment plan, or difficulty taking medications CALL 911 OR GO TO THE EMERGENCY DEPARTMENT if you experience any of the following: Severe abdominal pain or nausea/vomiting Severe chest pain, or chest pain that radiates (moves) to your jaw or arm Sudden, severe shortness of breath or difficulty breathing Thank you for allowing us to participate in your care. Pending Studies at Discharge: No Stand-Alone Forms: My [facility] Medications and DC Order Prescriptions: New potassium chloride 20 mEq tablet extended release 20 meq PO DAILY Qty: 7 1RF Continued acetaminophen [Tylenol Extra Strength] 500 mg Tablet 1,000 mg PO DIRECTED PRN (Reason: Pain) Discharge Orders: Discharge Order (Routine); Ordered 06/05/23 Ordered By: Sera Guardado/Other Patient Handouts: Hypokalemia Dc Admission Data Admit Date/Time: 06/02/23 23:06 Attending Provider: Mundo Cronin Admit Provider: Ciarra Mcclelland Primary Care Provider: PCP,NO Other Providers: Alf Hodges ; Abbie Morley ; Janell Mims ; Rodrigo Haney ; Dionne Brito ; Aggie Siegel ; Perico Aleman ; Roger oTussaint ; Reece Kwok ; Mary Ellen Kulkarni ; Francoise,No Attending ; Darrell Todd ; Sina Loja ; Arden Mccoy ; Cheo Em ; Flora Yi ; Emma Prabhakar ; Beryl Hamlin ; Dylan Boucher Other Interventions: Discharge Summary Assessment (RN) Last Done: 06/05/23 13:01 Supervising Physician Co-Signing Physician Notes I personally examined the patient and verified all hanson points of history and exam, discussed case, and agree with decision making with Dr Cunha feels oK would like to go home. vitals noted nad heent nc at mmm breathing unlabored no accessory muscles good effort skin no rashes no pallor or icterus hypoxia - from mass, fortunatley stable enough to not need O2 at home. discussed that this might be a "moving target" and having a pulse ox at home to follow - get f/u if <90 would need O2 - just doesn't now mass -unfortunately likely recurrence of sarcoma. biopsies done, results pending, opts to f/u at [facility] - navigator assisting otherwise as above, home today, getting PCP set up as well Resident Activity Tracking Resident Involvement: Resident Care Provided Care Provided: Adult Hospital Medicine
[2023-06-05] MEDS: ACETAMINOPHEN 500 MG TAB PO PRN (08:20)
[2023-06-05 08:38] LABS: Hematocrit (blood only) 25.1 % (37.0-47.0); Hemoglobin 7.5 g/dl (12.0-16.0); Mean Corpuscular Hemoglobin 25.8 pg (25.0-34.0); Mean Corpuscular Hgb Conc 29.9 g/dL (32.0-36.0); Mean Corpuscular Volume 86.3 fL (80.0-100.0); Mean Platelet Volume 8.7 fL (9.4-12.4); Platelet Count 562 K/uL (130-400); RDW Coefficient of Variation 15.6 % (11.5-14.5); RDW Standard Deviation 48.7 fL (36.4-46.3); Red Blood Count 2.91 M/uL (4.20-5.40); White Blood Count 14.94 K/ul (4.8-10.8)
[2023-06-05 08:40] LABS: BUN Creatinine Ratio 16.3 (10-20); Calcium 7.9 mg/dl (8.6-10.3); Creatinine Clr Calc Pharmacy 158.1 ml/min; Est GFR (African American) 131.8 ml/min; Est GFR (Non-African American) 113.7 ml/min; Phosphorus 2.2 mg/dl (2.5-4.9)
--- NOTE | 2023-06-05 08:46 | Pulmonology Progress Note ---
Date of Service June 05, 2023 Assessment & Plan (1) Right lower lobe lung mass: (2) History of sarcoma: Plan IMPRESSION: 58-year-old female presenting with ongoing febrile illness, cough, and RIGHT upper back pain who was found to have large 16 cm pleural-based chest mass on CTA concerning for recurrence of previous history of high-grade sarcoma. She status post percutaneous biopsy as well as endobronchial ultrasound for mediastinal staging. RECOMMENDATIONS: 1. Intrathoracic chest mass -await results of ultrasound guided transthoracic needle aspiration. 2. EBUS staging procedure, path pending. Would correlate with PET scan. If the PET scan shows additional sites of uptake which may be amenable to endobronchial ultrasound, could consider repeating the procedure if it would roving changer. 3. The patient can be dismissed from the hospital from a pulmonary perspective. She will need close follow-up with medical oncology and an outpatient PET scan. If additional pulmonary diagnostic procedures are required, I would be happy to see her back. Pulmonary will sign off at this point in time. Feel free to contact us with questions or concerns Admission and Anticipated Discharge Date Admission Date: June 02, 2023 Subjective Patient seen and examined. EMR reviewed. She is awake sitting at the bedside eating breakfast. She states she is having a little bit of pain in her back from the percutaneous biopsy. She is not having any coughing sputum production or hemoptysis. No breathing issues. She is on room air. She does feel her breathing is somewhat heavy but otherwise feels like she is doing well. Review of Systems Review of Systems: All systems reviewed & are unremarkable except as noted in Subjective Physical Exam Constitutional: WD/WN, vitals as above ENMT: Mallampati Class: III Neck: trachea midline, no thyromegaly Respiratory: no respiratory distress, no labored breathing, no cough and not tachypneic Auscultation: + diminished lung sounds Decreased breath sounds on the left. The percutaneous biopsy site is clean dry and intact with dressing in place Cardiovascular: RRR, no murmur, no edema Gastrointestinal (Abdomen): normal bowel sounds, soft, nontender, no hepatosplenomegaly Musculoskeletal: Status post right lower extremity amputation Skin: no rashes, warm and dry Neurologic: Nonfocal exam Lymphatic: no cervical lymphadenopathy Results & Data Results & Data Vital Signs (Past 12 Hours) Vital Signs Temp Pulse Pulse Resp BP Pulse Ox O2 Del Method 06/05/23 08:38 Room Air 08/17/23 02:53 37.2 C 108 H 18 106/64 90 Room Air 06/04/23 23:00 124 H 06/04/23 22:21 38.7 C H 126 H 18 116/66 90 Room Air Laboratory Results 06/05/23 07:03 06/05/23 07:03 PG Care Time/CCT Total # of Minutes Spent Total Time Spent with Patient: Total time spent is greater than 50% in coordination of care (as documented) at patient's floor/unit and/or counseling patient: Coding Level of Care Code 21972 SUB INP/OBS CARE 2/35MIN Diagnoses Right lower lobe lung mass R91.8 History of sarcoma Z85.831
[2023-06-05] MEDS ORDERED: POTASSIUM CHLORIDE CRTAB 20 MEQ TABCR PO STA (09:13)
[2023-06-05] MEDS: POTASSIUM CHLORIDE / WTR 10 MEQ/100 ML PLCT IV SCH ×2 (09:37→12:18)
[2023-06-05 12:40] LABS: BUN Creatinine Ratio 14.9 (10-20); Creatinine Clr Calc Pharmacy 144.7 ml/min; Est GFR (Non-African American) 110.4 ml/min; Potassium 3.4 mmol/L (3.5-5.1)
--- NOTE | 2023-06-05 17:26 | Billing Data ---
Date of Service June 05, 2023 Coding Level of Care Code 64073 IN/OBS DISCH 30 MIN/LESS
== END 2023-06-05 15:08 | disposition home or self-care (01) | DRG 830 ==
LOC: ED 13:12 → SUATTDRO 23:06 → EDINP 23:06 → 2N 23:34

== ENCOUNTER 2025-04-21 14:29 | Inpatient (IN) ==
--- NOTE | 2025-04-21 15:33 | Emergency Department Note ---
Impression & Plan Sinus tachycardia, Acute dyspnea, Pneumothorax, left, Elevated lactic acid level, SIRS (systemic inflammatory response syndrome), Pleural effusion on left, Compression of superior vena cava ED Provider Note HISTORY OF PRESENT ILLNESS: Patient is a 60-year-old female presenting with tachycardia. Patient reportedly has had persistent tachycardia with a heart rate of over 120 bpm. Patient reportedly has been wearing 1 to 1-1/2 L of nasal cannula over the last few weeks. However, family at bedside reports that she has been wearing up to 3 L over the last few days. Her tachycardia started 2 to 3 days ago. She was treated with Bactrim for a UTI for 5 days about 2 weeks ago. She has not had any reported fevers recently. Denies any cough or chest pain. Reports feeling very fatigued and winded. She denies any history of PEs. She states she had a large DVT in her right lower extremity and her sarcoma that was removed. She currently has an IVC filter in place. She last received an infusion of chemotherapy 6 days ago. She was supposed to travel to [facility] for her next chemotherapy infusion today, but given her symptoms she was referred to the emergency department for further evaluation. Patient denies any recent sick contact exposures. She is on Keytruda. ROS: as above PHYSICAL EXAM: Constitutional: Patient appears in no acute distress. HENT: Head: Normocephalic and atraumatic. Eyes: EOMI, PERRL Mouth/Throat: Mucous membranes moist. Neck: Trachea midline. Neck supple. Cardiovascular: Tachycardic with regular rhythm. No murmurs, rubs or gallops. Intact distal pulses. Pulmonary/Chest: No respiratory distress. Breath sounds clear and equal bilaterally. On 3L NC. Abdominal: Abdomen soft, no tenderness, rebound or guarding. Musculoskeletal: Right hip disarticulation. +3 significant left lower extremity pitting edema extending to the knee. Skin: Warm and dry. Psychiatric: Appropriate mood and affect for situation. Neurological: Alert and keenly responsive. CN II-XII grossly intact MDM: - Vitals signs showed tachycardic and hypotensive. - History obtained via patient and patient's family. History as above. 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) - Differential diagnoses include, but are not limited to: PE; pulmonary edema; pneumothorax;; ACS; electrolyte abnormality; UTI; sepsis - Order placed for continuous cardiac monitoring. At this time, monitor showed rate of 122 bpm with normal sinus rhythm, per my interpretation. - External medical records reviewed. Oncology/hematology note dated was reviewed. Patient was seen for metastatic undifferentiated pleomorphic sarcoma. Patient was seen for follow-up. She goes to [facility] for her chemotherapy. - EKG image interpreted by myself showed normal sinus rhythm. Rate tachycardic at 137 bpm. QT 322. No acute ischemic changes. - Laboratory workup interpreted by myself showed leukopenia (WBC 3.47); anemia (Hgb 9.4); elevated INR (1.3); slight hyponatremia (Na 135); elevated BNP (161); elevated lactate (2.4); elevated total bilirubin (1.2); normal AST/ALT; elevated troponin (27.8); normal procalcitonin - Blood cultures obtained - Patient given 1L NS bolus in ER with improvement in blood pressures. - CXR image shows complete opacification of the right hemithorax, per my interpretation. Radiology also notes a left-sided pneumothorax. - Discussed case with pulmonary/ICU, Dr. Nichols, at 15:45. He reviewed the patient's chest x-ray and was in agreement for CT chest. He did come to bedside and evaluate the patient at 16:38. He recommended transfer to a tertiary care facility at 17:05, given the patient's complex medical history. He recommends continued fluids and oxygen supplementation. Did discuss with the patient that she is DNR/DNI. - CT chest with IV contrast negative for PE. Noted to have complete opacification of the right hemithorax containing multiple mixed solid and cystic/necrotic masses consistent with metastatic disease. Right hemidiaphragm is obscured by supra diaphragmatic and infra diaphragmatic tumors. Noted to have mass effect upon the mediastinum with severe narrowing of the superior vena cava and right atrium. Noted to have erosion of multiple right-sided ribs and thoracic vertebrae most pronounced at the T11 level. Noted to have intracanicular extension of the tumor with moderate central canal stenosis. Moderate size left pneumothorax and moderate size malignant pleural effusion on the left. Multiple left lung metastases. - Patient empirically started on IV cefepime and vancomycin - Discussed case via a conference call with [facility] ICU, medicine and pulmonology at 17:53. They state that the patient would need a chest tube for transfer. However, they reiterate that "we do not have anything to offer the patient other than palliative." They do not feel that the patient is safe for transfer without a chest tube and would recommend a further discussion with the patient about transition to palliative or hospice. - Discussed case with patient and her family at bedside. Did discuss the severity of her disease pathology and after consultation with multiple specialists at [facility] who recommend her transfer to palliative. Patient reports that she would like to be made comfortable and would not like any further aggressive interventions performed. Ideally she states she would like to go home with palliative/hospice care, but given the late hour in the emergency department and the holiday tomorrow, we are unable to facilitate this from the emergency department. Did discuss this with the patient and her and her family, who were agreeable to admission for pain control and comfort measures until hospice can be coordinated for the patient to go home with. - Discussion was had with case management about need for admission for palliative care and hospice coordination. - Hospitalist consulted for admission - [facility] and [facility]. I have personally spent 46 minutes of critical care time in the direct management of this patient. This includes bedside care, interpretation of diagnostic studies, and testing, discussion with consultants, patient, and family members, and other required patient management activities. This 46 minutes is in excess of all separately billable procedures. ASSESSMENT AND PLAN: Diagnosis: Sinus tachycardia; acute dyspnea; left-sided pneumothorax; elevated lactic acid; left pleural effusion; SIRS; compression of superior vena cava Plan: admit Past Med/Surg History Problem List (Updated 04/21/25 @ 18:27 by Ofelia Charles MD) Compression of superior vena cava (Acute) Pleural effusion on left (Acute) SIRS (systemic inflammatory response syndrome) (Acute) Elevated lactic acid level (Acute) Pneumothorax, left (Acute) Acute dyspnea (Acute) Sinus tachycardia (Acute) Pleural effusion, right Acute hypoxic respiratory failure Superior vena cava compression syndrome SIRS (systemic inflammatory response syndrome) Lactic acidosis Leukopenia due to antineoplastic chemotherapy Metastatic sarcoma to lung Anemia associated with chemotherapy Pleural mass Thrombocythemia Right lower lobe lung mass (Acute) History of sarcoma (Acute) Leg edema, left (Acute) Acute hypokalemia (Acute) Anemia (Acute) Medical History Flu-like symptoms Social History Smoking Status: Never smoker Hx Alcohol Use: No Hx Substance Use: No Preferred Language: Mexican Communication Ability: Effective Hunting Guide Required: No Beliefs That Will Affect Care: None Current Living Situation: Spouse Feels Safe at Home: Yes Assistive Devices: Lift Chair, Prosthesis, Stair Lift, Walker and Wheelchair Allergies Allergies Allergy/AdvReac Type Severity Reaction Status Date / Time ibuprofen Allergy Severe TONGUE, Verified 06/02/23 17:26 THROAT, MOUTH SWELLS NSAIDS (Non-Steroidal Allergy Severe TONGUE, Verified 06/02/23 17:26 Anti-Inflamma THROAT, MOUTH SWELLS shellfish derived Allergy Severe TONGUE, Verified 06/02/23 17:26 THROAT, MOUTH SWELLS ifosfamide AdvReac Severe CONFUSION/H Verified 06/02/23 17:26 ALLUCINATIO NS Home Meds Home Medications Medication Instructions Recorded Confirmed furosemide 20 mg tablet 20 mg PO DAILY 04/21/25 04/21/25 gabapentin 400 mg capsule 400 mg PO TID 04/21/25 04/21/25 Results & Data (ED) Vital Signs Vital Signs - 24 hr 04/21/25 14:35 04/21/25 14:59 04/21/25 15:31 Temperature 36.9 C Temperature Source Temporal Artery Scan Pulse Rate 134 H 123 H Pulse Rate [Finger] Respiratory Rate 18 Respiratory Effort / Characteristics Non-Labored Spontaneous Respiratory Depth Normal Blood Pressure 96/63 L Blood Pressure [Left Arm] Blood Pressure Mean 74 Blood Pressure Mean [Left Arm] Pulse Oximetry 96 92 Oxygen Delivery Method Room Air Room Air Oxygen Flow Rate Sepsis Recent Fever Within 48 Hours No Sepsis New/Unexplained Change in Mental Status No Sepsis Action Taken by Nursing No Action Required 04/21/25 16:54 04/21/25 18:17 04/21/25 18:18 Temperature Temperature Source Pulse Rate Pulse Rate [Finger] 129 H 130 H 138 H Respiratory Rate 22 22 22 Respiratory Effort / Characteristics Respiratory Depth Blood Pressure Blood Pressure [Left Arm] 101/66 111/80 111/80 Blood Pressure Mean Blood Pressure Mean [Left Arm] 77 90 90 Pulse Oximetry 97 98 97 Oxygen Delivery Method Nasal Cannula Nasal Cannula Oxygen Flow Rate 3 3 Sepsis Recent Fever Within 48 Hours Sepsis New/Unexplained Change in Mental Status Sepsis Action Taken by Nursing Laboratory Data 04/21/25 15:15 04/21/25 15:15 Lab Results 04/21/25 04/21/25 04/21/25 Range/Units 15:15 15:17 17:25 WBC 3.47 L (4.8-10.8) K/ul RBC 3.54 L (4.20-5.40) M/uL Hgb 9.4 L (12.0-16.0) g/dl Hct 32.5 L (37.0-47.0) % MCV 91.8 (80.0-100.0) fL MCH 26.6 (25.0-34.0) pg MCHC 28.9 L (32.0-36.0) g/dL RDW Std Deviation 69.3 H (36.4-46.3) fL RDW Coeff of Az 20.7 H (11.5-14.5) % Plt Count 143 (130-400) K/uL MPV 10.6 (9.4-12.4) fL Neutrophils % (Manual) 99 % Lymphocytes % (Manual) 1 % Neutrophils # (Manual) 3.44 (1.40-6.50) K/uL Total Absolute Neuts 3.44 (1.4-6.5) K/uL Lymphocytes # (Manual) 0.03 L (1.2-3.4) K/uL Total Abs Lymphocytes 0.03 L (1.2-3.4) K/uL Anisocytosis Present Target Cells 1+ PT 14.0 H (9.0-12.0) Seconds INR 1.3 H (0.9-1.1) APTT 31 (21-31) Seconds PTT Ratio 1.2 Sodium 135 L (136-145) mmol/L Potassium 3.7 (3.5-5.1) mmol/L Chloride 89 L (98-107) mmol/L Carbon Dioxide 38 H (21-32) mmol/L Anion Gap 8 (3-11) BUN 12 (6-23) mg/dl Creatinine 0.31 L (0.6-1.2) mg/dl Est Cr Clr Drug Dosing 188.7 ml/min eGFR 121.92 BUN/Creatinine Ratio 38.7 H (10-20) Glucose 99 (70-99(Fasting)) mg/dl Lactate 2.4 H* 1.7 (0.4-2.0) mmol/L Calcium 8.0 L (8.6-10.3) mg/dl Magnesium 1.8 (1.7-2.4) mg/dl Total Bilirubin 1.2 H (0.2-1.0) mg/dl AST 28 (13-39) U/L ALT 11 (7-52) U/L Alkaline Phosphatase 196 H (34-104) U/L Troponin I High Sens 27.8 H 35.1 H (0-14) pg/ml B-Natriuretic Peptide 161 H (0-100) pg/ml Total Protein 5.9 L (6.0-8.3) gm/dl Albumin 2.1 L (3.4-5.0) gm/dl Globulin 3.8 (2.5-4.0) gm/dl Albumin/Globulin Ratio 0.6 L (0.9-2) Procalcitonin 0.10 (0-0.5) ng/ml Adenovirus (PCR) (NotDetected) B. pertussis DNA (PCR) (NotDetected) B.parapertussis DNA PCR (NotDetected) C. pneumoniae DNA (PCR) (NotDetected) Coronavirus OC43 (PCR) (NotDetected) Coronavirus HKU1 (PCR) (NotDetected) Coronavirus 229E (PCR) (NotDetected) SARS-CoV-2 (PCR) (NotDetected) Coronavirus NL63 (PCR) (NotDetected) Human Metapneumovir PCR (NotDetected) Influenza Type A (PCR) (NotDetected) Influenza Type B (PCR) (NotDetected) M. pneumoniae (PCR) (NotDetected) Parainfluenza 1 (PCR) (NotDetected) Parainfluenza 2 (PCR) (NotDetected) Parainfluenza 3 (PCR) (NotDetected) Parainfluenza 4 (PCR) (NotDetected) RSV (PCR) (NotDetected) Entero/Rhino (PCR) (NotDetected) 04/21/25 Range/Units Unknown WBC (4.8-10.8) K/ul RBC (4.20-5.40) M/uL Hgb (12.0-16.0) g/dl Hct (37.0-47.0) % MCV (80.0-100.0) fL MCH (25.0-34.0) pg MCHC (32.0-36.0) g/dL RDW Std Deviation (36.4-46.3) fL RDW Coeff of Az (11.5-14.5) % Plt Count (130-400) K/uL MPV (9.4-12.4) fL Neutrophils % (Manual) % Lymphocytes % (Manual) % Neutrophils # (Manual) (1.40-6.50) K/uL Total Absolute Neuts (1.4-6.5) K/uL Lymphocytes # (Manual) (1.2-3.4) K/uL Total Abs Lymphocytes (1.2-3.4) K/uL Anisocytosis Target Cells PT (9.0-12.0) Seconds INR (0.9-1.1) APTT (21-31) Seconds PTT Ratio Sodium (136-145) mmol/L Potassium (3.5-5.1) mmol/L Chloride (98-107) mmol/L Carbon Dioxide (21-32) mmol/L Anion Gap (3-11) BUN (6-23) mg/dl Creatinine (0.6-1.2) mg/dl Est Cr Clr Drug Dosing ml/min eGFR BUN/Creatinine Ratio (10-20) Glucose (70-99(Fasting)) mg/dl Lactate (0.4-2.0) mmol/L Calcium (8.6-10.3) mg/dl Magnesium (1.7-2.4) mg/dl Total Bilirubin (0.2-1.0) mg/dl AST (13-39) U/L ALT (7-52) U/L Alkaline Phosphatase (34-104) U/L Troponin I High Sens (0-14) pg/ml B-Natriuretic Peptide (0-100) pg/ml Total Protein (6.0-8.3) gm/dl Albumin (3.4-5.0) gm/dl Globulin (2.5-4.0) gm/dl Albumin/Globulin Ratio (0.9-2) Procalcitonin (0-0.5) ng/ml Adenovirus (PCR) Not Detected (NotDetected) B. pertussis DNA (PCR) Not Detected (NotDetected) B.parapertussis DNA PCR Not Detected (NotDetected) C. pneumoniae DNA (PCR) Not Detected (NotDetected) Coronavirus OC43 (PCR) Not Detected (NotDetected) Coronavirus HKU1 (PCR) Not Detected (NotDetected) Coronavirus 229E (PCR) Not Detected (NotDetected) SARS-CoV-2 (PCR) Not Detected (NotDetected) Coronavirus NL63 (PCR) Not Detected (NotDetected) Human Metapneumovir PCR Not Detected (NotDetected) Influenza Type A (PCR) Not Detected (NotDetected) Influenza Type B (PCR) Not Detected (NotDetected) M. pneumoniae (PCR) Not Detected (NotDetected) Parainfluenza 1 (PCR) Not Detected (NotDetected) Parainfluenza 2 (PCR) Not Detected (NotDetected) Parainfluenza 3 (PCR) Not Detected (NotDetected) Parainfluenza 4 (PCR) Not Detected (NotDetected) RSV (PCR) Not Detected (NotDetected) Entero/Rhino (PCR) Not Detected (NotDetected) Administered Medications Vancomycin HCl 1,500 mg/ (Sodium Chloride) 530 mls @ 200 mls/hr IV NOW ONE Stop: 04/21/25 20:12 Last Admin: 04/21/25 18:30 Dose: 200 mls/hr Documented By: EDITH Sodium Chloride (Nss) 1,000 mls @ 110 mls/hr IV .[id number] STA Stop: 04/22/25 02:53 Last Admin: 04/21/25 18:30 Dose: 110 mls/hr Documented By: EDITH Discontinued Medications Diphenhydramine HCl (Diphenhydramine 50 Mg/Ml Vial) 50 mg IV ONE ONE Stop: 04/21/25 15:48 Last Admin: 04/21/25 16:07 Dose: 50 mg Documented By: EDITH Cefepime HCl (Maxipime 2000mg) 2,000 mg in 20 mls @ 5 mls/min IV NOW STA; Protocol Stop: 04/21/25 17:37 Last Admin: 04/21/25 17:40 Dose: 5 mls/min Documented By: EDITH Ioversol (Optiray 320 100ml) 93 ml IV ONCE ONE Stop: 04/21/25 16:21 Last Admin: 04/21/25 16:20 Dose: 93 ml Documented By: GERA Methylprednisolone (Methylprednisolone 125 Mg/2 Ml Vial) 40 mg IV NOW ONE Stop: 04/21/25 15:48 Last Admin: 04/21/25 16:08 Dose: 40 mg Documented By: EDITH Imaging Data Radiologist's Impression: Chest X-Ray 04/21/25 14:40 XR chest 1V portable CLINICAL HISTORY: Sepsis COMPARISON STUDY: 06/04/2023 FINDINGS: There is complete opacification of the right hemithorax. There is a moderate left pneumothorax with 4 cm pleural separation at the left apex. There is mild opacity at the left base with mild blunting of the left costophrenic angle. IMPRESSION: 1. Moderate left pneumothorax. 2. Complete opacification of the right hemithorax could represent large pleural effusion, right lung collapse, consolidation, or lung mass. ACT 112: Positive. There are findings on this exam that require communication between the performing entity and the patient following Patient Test Result Information Act ([place] Act 112) guidelines. Electronically signed by: Dylan Gallagher M.D. 04/21/2025 3:[address] 04/21/25 15:47 CT SCAN OF THE CHEST WITH IV CONTRAST CLINICAL HISTORY: Sarcoma. Shortness of breath. Tachycardia. COMPARISON STUDY: Chest CT November 04, 2023. Chest radiograph performed earlier today. TECHNIQUE: Following the IV administration of 93 cc of Optiray 320, CT scan of the thorax was performed from the thoracic inlet to the upper abdomen. Images are reviewed in the axial, sagittal, and coronal planes. IV contrast was administered without complication. A dose lowering technique was utilized adhering to the principles of ALARA. CT DOSE: 946.96 mGy.cm FINDINGS: No pulmonary emboli are identified although the right-sided pulmonary arteries are extrinsically narrowed by tumor. In addition, the segmental and subsegmental left-sided pulmonary arteries are suboptimally assessed due to respiratory motion. There is no thoracic aortic dissection. The size of the heart is normal. There is no pericardial effusion. A moderate-sized left apical pneumothorax is present. There is also a moderate-sized left pleural effusion. A 5.7 x 3.4 cm enhancing left pleural implant is present. Numerous left lung nodules measure up to 1.5 cm. These findings are new since CT of November 04, 2023. Of note, there is complete opacification of the right hemithorax. There are postoperative findings within the right hemithorax. The right hemidiaphragm is obscured by supradiaphragmatic and infradiaphragmatic mixed solid and cystic masses. A right infradiaphragmatic mass has mass effect upon the liver and measures 11.8 x 8.5 cm. This lesion may invade the liver or represent a liver metastasis. This results in differential attenuation of the adjacent liver parenchyma. An index mass within the medial right lower hemithorax measures 15.9 x 9 cm. There is multifocal associated osseous involvement, including erosion of multiple ribs and thoracic vertebra, most pronounced at the T11 level. Associated intracanalicular extension of tumor results in moderate central canal narrowing. Right-sided lesions extend through the chest wall. Of note, there is marked mass effect upon the right atrium and the distal superior vena cava. The superior vena cava is patent but severely narrowed. Extensive asymmetric right chest wall and breast edema is present. Bilateral flank soft tissue edema is also noted. Layering hyperdense material within the gallbladder is present. IMPRESSION: 1. No pulmonary emboli identified although left segmental and subsegmental pulmonary arteries suboptimally assessed due to respiratory motion and the right-sided pulmonary arteries are extrinsically narrowed. 2. Complete opacification of the right hemithorax containing multiple mixed solid and cystic/necrotic masses consistent with metastatic disease. Right hemidiaphragm obscured by supradiaphragmatic and infradiaphragmatic tumor, as detailed above. Associated mass effect upon the mediastinum with severe narrowing of the superior vena cava and right atrium. The findings could be correlated with clinical evidence for SVC syndrome. Asymmetric right chest wall and breast edema. Associated erosion of multiple right-sided ribs and thoracic vertebra, most pronounced at the T11 level. Intracanalicular extension of tumor with moderate central canal stenosis. 3. Moderate left pneumothorax. This could be secondary to metastatic disease or an underlying bronchopleural fistula. Moderate-sized malignant left pleural effusion. 4. Multiple left lung metastases. ACT 112: Negative or not required by law. Electronically signed by: Rodrick Kraft M.D. 04/21/2025 5:14 PM Discharge Plan Visit Data Chief Complaint: Tachycardia Stated Complaint: RAPID HEART BEAT,AND BREATHINNG, OUT OF BREATH ED Provider: Ofelia Charles Discharge Problem: Sinus tachycardia, Acute dyspnea, Pneumothorax, left, Elevated lactic acid level, SIRS (systemic inflammatory response syndrome), Pleural effusion on left, Compression of superior vena cava Patient Disposition: Transfer Acute Care Hospital Condition: Serious Forms Stand Alone Forms: [facility] Prescriptions Prescriptions: No Action gabapentin 400 mg capsule 400 mg PO TID furosemide 20 mg tablet 20 mg PO DAILY Referrals Referrals: Sera Cunha DO [Primary Care Provider] -
--- NOTE | 2025-04-21 15:37 | XRay Report ---
XR chest 1V portable CLINICAL HISTORY: Sepsis COMPARISON STUDY: 06/04/2023 FINDINGS: There is complete opacification of the right hemithorax. There is a moderate left pneumotho rax with 4 cm pleural separation at the left apex. There is mild opacity at the left base with mild b lunting of the left costophrenic angle. IMPRESSION: 1. Moderate left pneumothorax. 2. Complete opacification of the right hemithorax could represent large pleural effusion, right lung collapse, consolidation, or lung mass. ACT 112: Positive. There are findings on this exam that require communication between the performing entity and the patient following Patient Test Result Information Act ([place] Act 112) guidelines. Electronically signed by: Dylan Gallagher M.D. 04/21/2025 3:36 PM
[2025-04-21 15:50] LABS: Alanine Aminotransferase 11.0 U/L (7-52); Albumin Globulin Ratio 0.6 (0.9-2); Alkaline Phosphatase 196.0 U/L (34-104); Anion Gap 8.0 (3-11); Bilirubin,Total 1.2 mg/dl (0.2-1.0); Blood Urea Nitrogen 12.0 mg/dl (6-23); Calcium 8.0 mg/dl (8.6-10.3); Carbon Dioxide 38.0 mmol/L (21-32); Chloride 89.0 mmol/L (98-107); Creatinine Clr Calc Pharmacy 188.7 ml/min; Globulin 3.8 gm/dl (2.5-4.0); Glucose 99.0 mg/dl (70-99(Fasting)); Magnesium 1.8 mg/dl (1.7-2.4); Potassium 3.7 mmol/L (3.5-5.1); Sodium 135.0 mmol/L (136-145); Total Protein 5.9 gm/dl (6.0-8.3)
[2025-04-21 15:58] LABS: ALC (manual) 0.03 K/uL (1.2-3.4); ANC (manual) 3.44 K/uL (1.4-6.5); Anisocytosis Present; Hematocrit (blood only) 32.5 % (37.0-47.0); Hemoglobin 9.4 g/dl (12.0-16.0); Mean Corpuscular Hemoglobin 26.6 pg (25.0-34.0); Mean Corpuscular Volume 91.8 fL (80.0-100.0); Platelet Count 143 K/uL (130-400); RDW Standard Deviation 69.3 fL (36.4-46.3); Red Blood Count 3.54 M/uL (4.20-5.40); Target Cells 1+; White Blood Count 3.47 K/ul (4.8-10.8)
[2025-04-21 16:00] LABS: INR 1.3 (0.9-1.1); Partial Thromboplastin Time 31 Seconds (21-31); Prothrombin Time 14.0 Seconds (9.0-12.0)
[2025-04-21] MEDS: diphenhydrAMINE 50 MG/ML VIAL IV ONE (16:07)
[2025-04-21] MEDS: OPTIRAY 320 100ml IV ONE (16:20)
[2025-04-21 16:34] LABS: Chlamydia pneumoniae PCR Not Detected (NotDetected); Coronavirus 229E PCR Not Detected (NotDetected); Coronavirus CoV-2 (COVID19)PCR Not Detected (NotDetected); Coronavirus HKU1 PCR Not Detected (NotDetected); Coronavirus NL63 PCR Not Detected (NotDetected); Coronavirus OC43PCR Not Detected (NotDetected); Human Metapneumovirus PCR Not Detected (NotDetected); Parainfluenza Virus 1 PCR Not Detected (NotDetected); Parainfluenza Virus 2 PCR Not Detected (NotDetected); Parainfluenza Virus 3 PCR Not Detected (NotDetected); Parainfluenza Virus 4 PCR Not Detected (NotDetected); Respiratory Syncytial VirusPCR Not Detected (NotDetected); Rhinovirus/Enterovirus PCR Not Detected (NotDetected)
--- NOTE | 2025-04-21 17:16 | CT Scan Report ---
CT SCAN OF THE CHEST WITH IV CONTRAST CLINICAL HISTORY: Sarcoma. Shortness of breath. Tachycardia. COMPARISON STUDY: Chest CT November 04, 2023. Chest radiograph performed earlier today. TECHNIQUE: Following the IV administration of 93 cc of Optiray 320, CT scan of the thorax was perform ed from the thoracic inlet to the upper abdomen. Images are reviewed in the axial, sagittal, and marina nal planes. IV contrast was administered without complication. A dose lowering technique was utilize d adhering to the principles of ALARA. CT DOSE: 946.96 mGy.cm FINDINGS: No pulmonary emboli are identified although the right-sided pulmonary arteries are extrinsi zeyad narrowed by tumor. In addition, the segmental and subsegmental left-sided pulmonary arteries ar e suboptimally assessed due to respiratory motion. There is no thoracic aortic dissection. The size o f the heart is normal. There is no pericardial effusion. A moderate-sized left apical pneumothorax is present. There is also a moderate-sized left pleural effusion. A 5.7 x 3.4 cm enhancing left pleural implant is present. Numerous left lung nodules measure up to 1.5 cm. These findings are new since CT of November 04, 2023. Of note, there is complete opacification of the right hemithorax. There are pos toperative findings within the right hemithorax. The right hemidiaphragm is obscured by supradiaphrag matic and infradiaphragmatic mixed solid and cystic masses. A right infradiaphragmatic mass has mass effect upon the liver and measures 11.8 x 8.5 cm. This lesion may invade the liver or represent a roni er metastasis. This results in differential attenuation of the adjacent liver parenchyma. An index ma ss within the medial right lower hemithorax measures 15.9 x 9 cm. There is multifocal associated osse ous involvement, including erosion of multiple ribs and thoracic vertebra, most pronounced at the T11 level. Associated intracanalicular extension of tumor results in moderate central canal narrowing. R ight-sided lesions extend through the chest wall. Of note, there is marked mass effect upon the right atrium and the distal superior vena cava. The superior vena cava is patent but severely narrowed. Ex tensive asymmetric right chest wall and breast edema is present. Bilateral flank soft tissue edema is also noted. Layering hyperdense material within the gallbladder is present. IMPRESSION: 1. No pulmonary emboli identified although left segmental and subsegmental pulmonary arteries subopti marco assessed due to respiratory motion and the right-sided pulmonary arteries are extrinsically mago rowed. 2. Complete opacification of the right hemithorax containing multiple mixed solid and cystic/necrotic masses consistent with metastatic disease. Right hemidiaphragm obscured by supradiaphragmatic and in fradiaphragmatic tumor, as detailed above. Associated mass effect upon the mediastinum with severe na rrowing of the superior vena cava and right atrium. The findings could be correlated with clinical ev idence for SVC syndrome. Asymmetric right chest wall and breast edema. Associated erosion of multiple right-sided ribs and thoracic vertebra, most pronounced at the T11 level. Intracanalicular extension of tumor with moderate central canal stenosis. 3. Moderate left pneumothorax. This could be secondary to metastatic disease or an underlying broncho pleural fistula. Moderate-sized malignant left pleural effusion. 4. Multiple left lung metastases. ACT 112: Negative or not required by law. Electronically signed by: Rodrick Kraft M.D. 04/21/2025 5:14 PM
--- NOTE | 2025-04-21 17:25 | Critical Care Consultation ---
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 and acute hypoxic respiratory failure secondary to compressive atelectasis of masses PLAN: Resp: Acute hypoxic respiratory failure - Total obliteration of right lung with compressive atelectasis and mediastinal shift secondary to mass and cannot exclude loculated effusion - Apical pneumothorax on left of unclear duration: This could be secondary to mass effect and prior pleurodesis - Pleural effusion and right lower lung yen with significant compressive atelectasis of the left lung - Discussed with patient and family even placement of chest tube could lead to complication such as bleeding of mass - Discussed risks and benefits of helicopter transport, patient does not want helicopter transport CV: Tachycardia and elevated troponins - Concerning for SIRS with strong possibility for sepsis cannot exclude chemotherapeutic toxicity Fluids/Renal: Lactic acid acidosis - Multiple possible etiologies including sepsis ID: Cannot exclude sepsis - Would initiate broad-spectrum antibiotics empirically: Cefepime and vancomycin GI/Nutrition: Supra and infra diaphragmatic tumor Mild transaminitis Heme: Anemia: Multifactorial including chemotherapeutic effect DVT prophylaxis: Historical placement of IVC filter, given need for possible therapeutic intervention would hold chemical anticoagulation at this time Vascular access: Peripheral IVs Code Status: DNR DNI in event of arrest Disposition: Transfer to [facility] - Profoundly medically complex exceeding subspecialist availability as well as resources. Discussed if patient had palliative care plan and wanted to initiate that in order to remain close to home, that would by enlarge be the extent of the therapies we would have to offer her. At this time the plan is to transfer the patient to [facility] for further evaluation and possible treatment. 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 This is a life/limb threatening event. This includes time spent evaluating patient, direct bedside care, chart review, placing orders, interpretation of diagnostic studies, discussion with consu ltants, patient, and/or family members regarding treatment decisions, as well as other required patient management activities. This time is exclusive of all separately billable procedures, and teaching time and separate from and in addition to any other critical care service time. History of Present Illness Reason for Consultation: Large right-sided pleural effusion and tachycardia with concern for sepsis History of Present Illness I was requested to evaluate this patient in the emergency department by Dr. Charles given concerns for new total obliteration of the right lung field found on chest x-ray. Chief complaint was generalized fatigue and tachycardia. Patient has a past medical history pertinent for malignant metastatic sarcoma. She gets most of her care from [facility], in the last 2 years they partnered with [facility] oncology to receive chemo and immunotherapy closer to home. By enlarge all her care especially her surgical care has occurred at [facility]. She recently received chemotherapy approximately 5 days ago and has generally decompensated since that time. Their hope was to attempt to drive to [facility] when they contacted the [facility] and they were advised to seek medical treatment locally. Patient had a right lower lobe pneumonectomy secondary to metastatic mass, they report that she has had known tumors in the right lung that have varied in size depending on radiation therapy. reports that masses had supposedly totally obliterated the right mainstem bronchus. Our limited records showed prior mass but not total obliteration of the right lung field. Also reports several months ago patient had a pneumothorax on the left and had to undergo pleurodesis, they are unable to tell me if there was any residual pneumothorax. They also report the patient has had right breast swelling increasing in size over the last 5 days. Patient reports that she was only on oxygen after having a pneumothorax; however, she has required oxygen for exertional dyspnea over the last several days. We discussed that this could also represent infection, bronchopleural fistula, metastatic disease, pneumothorax, trapped lung, sepsis, superior vena cava syndrome. Patient requires the input of multiple subspecialties and treatment modalities we do not have here. At this point they would prefer to go to [facility] to seek additional input and care. We discussed the risks of helicopter transport, patient is adamantly denying to be flown, given the unclear nature and timeline of the left-sided pneumothorax, even placing a chest tube could be fraught with potential for life-threatening complications and bleeding. We discussed aggressiveness should the patient require intubation or heroic measures in event of cardiac arrest and she would not want to undergo those interventions however still desires evaluation and transfer to [place]. I conveyed this to the emergency medicine team who are working on transferring the patient to higher level of care. Allergies Allergy/AdvReac Type Severity Reaction Status Date / Time ibuprofen Allergy Severe TONGUE, Verified 06/02/23 17:26 THROAT, MOUTH SWELLS NSAIDS (Non-Steroidal Allergy Severe TONGUE, Verified 06/02/23 17:26 Anti-Inflamma THROAT, MOUTH SWELLS shellfish derived Allergy Severe TONGUE, Verified 06/02/23 17:26 THROAT, MOUTH SWELLS ifosfamide AdvReac Severe CONFUSION/H Verified 06/02/23 17:26 ALLUCINATIO NS Home Medications Medication Instructions Recorded Confirmed Type furosemide 20 mg tablet 20 mg PO DAILY 04/21/25 04/21/25 History gabapentin 400 mg capsule 400 mg PO TID 04/21/25 04/21/25 History Patient History Medical History Flu-like symptoms Social History Smoking Status: Never smoker Hx Alcohol Use: No Hx Substance Use: No Preferred Language: Yemeni Communication Ability: Effective Brakeshoe Repairer Required: No Beliefs That Will Affect Care: None Current Living Situation: Spouse Feels Safe at Home: Yes Assistive Devices: Lift Chair, Prosthesis, Stair Lift, Walker and Wheelchair Physical Exam Physical Exam: General: Alert. nontoxic. Appears older than stated age Skin: Warm, swelling to the anterior chest Head: Atraumatic Ears, nose, mouth and throat: airway patent Cardiovascular: Normal peripheral perfusion, tachycardia on bedside monitor Respiratory: no respiratory distress, nasal cannula present able to speak in f ull sentences Gastrointestinal: Non distended Results & Data Results & Data Vital Signs (Past 12 Hours) Vital Signs Temp Pulse Pulse Resp BP BP Pulse Ox 04/21/25 16:54 129 H 22 101/66 97 04/21/25 15:31 92 04/21/25 14:59 123 H 04/21/25 14:35 36.9 C 134 H 18 96/63 L 96 O2 Del Method O2 Flow Rate 04/21/25 16:54 Nasal Cannula 3 04/21/25 15:31 Room Air 04/21/25 14:59 04/21/25 14:35 Room Air Critical Care Results & Data Vital Signs (Past 12 Hours) Vital Signs Temp Pulse Pulse Resp BP BP Pulse Ox 04/21/25 16:54 129 H 22 101/66 97 04/21/25 15:31 92 04/21/25 14:59 123 H 04/21/25 14:35 36.9 C 134 H 18 96/63 L 96 O2 Del Method O2 Flow Rate 04/21/25 16:54 Nasal Cannula 3 04/21/25 15:31 Room Air 04/21/25 14:59 04/21/25 14:35 Room Air Lab & Micro Results (Past 24 Hours) RBC 3.54 M/uL (4.20-5.40) L 04/21/25 WBC 3.47 K/ul (4.8-10.8) L 04/21/25 Hgb 9.4 g/dl (12.0-16.0) L 04/21/25 Hct 32.5 % (37.0-47.0) L 04/21/25 MCV 91.8 fL (80.0-100.0) 04/21/25 MCH 26.6 pg (25.0-34.0) 04/21/25 MCHC 28.9 g/dL (32.0-36.0) L 04/21/25 RDW Standard Deviation 69.3 fL (36.4-46.3) H 04/21/25 RDW Coefficient of Variation 20.7 % (11.5-14.5) H 04/21/25 Plt Count 143 K/uL (130-400) 04/21/25 MPV 10.6 fL (9.4-12.4) 04/21/25 ANC 3.44 K/uL (1.4-6.5) 04/21/25 ALC 0.03 K/uL (1.2-3.4) L 04/21/25 Neutrophils % (Manual) 99 % 04/21/25 Lymphocytes % (Manual) 1 % 04/21/25 Neutrophils # (Manual) 3.44 K/uL (1.40-6.50) 04/21/25 Lymphocytes # (Manual) 0.03 K/uL (1.2-3.4) L 04/21/25 Anisocytosis Present 04/21/25 Target Cells 1+ 04/21/25 Na 135 mmol/L (136-145) L 04/21/25 K 3.7 mmol/L (3.5-5.1) 04/21/25 Cl 89 mmol/L (98-107) L 04/21/25 CO2 38 mmol/L (21-32) H 04/21/25 Anion Gap 8 (3-11) 04/21/25 BUN 12 mg/dl (6-23) 04/21/25 Creatinine 0.31 mg/dl (0.6-1.2) L 04/21/25 BUN/Creatinine Ratio 38.7 (10-20) H 04/21/25 Glu 99 mg/dl (70-99(Fasting)) 04/21/25 Ca 8.0 mg/dl (8.6-10.3) L 04/21/25 Total Bilirubin 1.2 mg/dl (0.2-1.0) H 04/21/25 AST 28 U/L (13-39) 04/21/25 ALT 11 U/L (7-52) 04/21/25 Alkaline Phosphatase 196 U/L (34-104) H 04/21/25 TP 5.9 gm/dl (6.0-8.3) L 04/21/25 Albumin 2.1 gm/dl (3.4-5.0) L 04/21/25 Globulin 3.8 gm/dl (2.5-4.0) 04/21/25 Albumin/Globulin Ratio 0.6 (0.9-2) L 04/21/25 Mg 1.8 mg/dl (1.7-2.4) 04/21/25 15:15 Calcium Level 8.0 mg/dl (8.6-10.3) L 04/21/25 15:15 Prothromb Time International Ratio 1.3 (0.9-1.1) H 04/21/25 15 :15 Diagnostic Findings (Past 24 Hours) Chest X-Ray 04/21/25 14:40 XR chest 1V portable CLINICAL HISTORY: Sepsis COMPARISON STUDY: 06/04/2023 FINDINGS: There is complete opacification of the right hemithorax. There is a moderate left pneumothorax with 4 cm pleural separation at the left apex. There is mild opacity at the left base with mild blunting of the left costophrenic angle. IMPRESSION: 1. Moderate left pneumothorax. 2. Complete opacification of the right hemithorax could represent large pleural effusion, right lung collapse, consolidation, or lung mass. ACT 112: Positive. There are findings on this exam that require communication between the performing entity and the patient following Patient Test Result Information Act ([place] Act 112) guidelines. Electronically signed by: Dylan Gallagher M.D. 04/21/2025 3:[address] 04/21/25 15:47 CT SCAN OF THE CHEST WITH IV CONTRAST CLINICAL HISTORY: Sarcoma. Shortness of breath. Tachycardia. COMPARISON STUDY: Chest CT November 04, 2023. Chest radiograph performed earlier today. TECHNIQUE: Following the IV administration of 93 cc of Optiray 320, CT scan of the thorax was performed from the thoracic inlet to the upper abdomen. Images are reviewed in the axial, sagittal, and coronal planes. IV contrast was administered without complication. A dose lowering technique was utilized adhering to the principles of ALARA. CT DOSE: 946.96 mGy.cm FINDINGS: No pulmonary emboli are identified although the right-sided pulmonary arteries are extrinsically narrowed by tumor. In addition, the segmental and subsegmental left-sided pulmonary arteries are suboptimally assessed due to respiratory motion. There is no thoracic aortic dissection. The size of the heart is normal. There is no pericardial effusion. A moderate-sized left apical pneumothorax is present. There is also a moderate-sized left pleural effusion. A 5.7 x 3.4 cm enhancing left pleural implant is present. Numerous left lung nodules measure up to 1.5 cm. These findings are new since CT of November 04, 2023. Of note, there is complete opacification of the right hemithorax. There are postoperative findings within the right hemithorax. The right hemidiaphragm is obscured by supradiaphragmatic and infradiaphragmatic mixed solid and cystic masses. A right infradiaphragmatic mass has mass effect upon the liver and measures 11.8 x 8.5 cm. This lesion may invade the liver or represent a liver metastasis. This results in differential attenuation of the adjacent liver parenchyma. An index mass within the medial right lower hemithorax measures 15.9 x 9 cm. There is multifocal associated osseous involvement, including erosion of multiple ribs and thoracic vertebra, most pronounced at the T11 level. Associated intracanalicular extension of tumor results in moderate central canal narrowing. Right-sided lesions extend through the chest wall. Of note, there is marked mass effect upon the right atrium and the distal superior vena cava. The superior vena cava is patent but severely narrowed. Extensive asymmetric right chest wall and breast edema is present. Bilateral flank soft tissue edema is also noted. Layering hyperdense material within the gallbladder is present. IMPRESSION: 1. No pulmonary emboli identified although left segmental and subsegmental pulmonary arteries suboptimally assessed due to respiratory motion and the right-sided pulmonary arteries are extrinsically narrowed. 2. Complete opacification of the right hemithorax containing multiple mixed solid and cystic/necrotic masses consistent with metastatic disease. Right hemidiaphragm obscured by supradiaphragmatic and infradiaphragmatic tumor, as detailed above. Associated mass effect upon the mediastinum with severe narrowing of the superior vena cava and right atrium. The findings could be correlated with clinical evidence for SVC syndrome. Asymmetric right chest wall and breast edema. Associated erosion of multiple right-sided ribs and thoracic vertebra, most pronounced at the T11 level. Intracanalicular extension of tumor with moderate central canal stenosis. 3. Moderate left pneumothorax. This could be secondary to metastatic disease or an underlying bronchopleural fistula. Moderate-sized malignant left pleural effusion. 4. Multiple left lung metastases. ACT 112: Negative or not required by law. Electronically signed by: Rodrick Kraft M.D. 04/21/2025 5:14 PM RT Ventilator Mngmt (Last Documented) Ventilator Ordered Settings Respiratory Rate 22 04/21/25 16:54 Ventilator - PT Measurements Respiratory Rate 22 Coding Level of Care Code 02503 CRITICAL CARE 1ST 30-74M Additional Critical Care Time Additional 30min Critical Care Time: Yes - 64860 Diagnoses Acute hypoxic respiratory failure J96.01 Anemia associated with chemotherapy D64.81; T45.1X5A Metastatic sarcoma to lung C78.00; C49.9 Leukopenia due to antineoplastic chemotherapy D70.1; T45.1X5A Lactic acidosis E87.20 SIRS (systemic inflammatory response syndrome) R65.10 Superior vena cava compression syndrome I87.1 Pleural effusion, right J90 Additional Codes Critical Care Time - Additional 30min Critical Care Time: Yes - [id number] ([id number])
[2025-04-21] MEDS ORDERED: VANCOMYCIN CONSULT ACTIVE PRN (17:34)
[2025-04-21] MEDS: CEFEPIME 2000MG 2,000 MG/20 ML SYR IV STA (17:40)
[2025-04-21] MEDS ORDERED: ONDANSETRON INJ 2 MG/ML 2 ML VIAL IV PRN ×2 (18:15→21:58)
[2025-04-21] MEDS ORDERED: MoRPHine SULFATE 2 MG/ML CARP IV PRN (18:15)
[2025-04-21] MEDS: VANCOMYCIN HCL 1,500 MG in SODIUM CHLORIDE 0.9% 500 ML IV ONE (18:30)
[2025-04-21] MEDS: SODIUM CHLORIDE 0.9% 1,000 ML IV STA (18:30)
--- NOTE | 2025-04-21 19:28 | History & Physical Report ---
Date of Service April 21, 2025 Assessment & Plan (1) Metastatic sarcoma to lung: Plan: For home with hospicediscussed with case management who will try to start the process tonight. The goal will be to get her home as quickly as possible. Fortunately it does not appear that she will have intricate, or high-level needsmost likely pain and anxiety medications, oxygen, and a hospital bed. - For pain controlmorphine 5 mg sublingual to test if this would be a geovanna sonable home dose, Dilaudid IV as a backup for breakthrough to ensure she does not suffer if the morphine sublingual is not enough - for dyspneamorphine 2.5 sublingual, Ativan as a backup - admit to medical for now, home with hospice as soon as everything can be set up History of Present Illness Chief Complaint: Shortness of breath Primary Care Provider: Sera Cunha DO patient is a very pleasant 60-year-old female who unfortunately has had a long and difficult course with metastatic sarcoma. I first saw her a few years ago when if she had a lung mass that appeared to be recurrent sarcomaand she actually did have several years after that, but now came in today with hypoxic respiratory failure and possible SVC syndromeafter emergency and critical care management as well as discussions with tertiary care, patient recognized that she is in a very unfortunate situation and wanted to get home with hospice. This was not able to be set up in a timely manner and we have been asked to admit her to continue with hospice planning. She notes that she does have a little bit of shortness of breathI turned up the oxygen for her, she also noticed a little bit of chest pain, although she notes that having oxycodone at home has helped. She reiterates the desire to go home on hospice as quickly as possible. Allergies Allergy/AdvReac Type Severity Reaction Status Date / Time ibuprofen Allergy Severe TONGUE, Verified 06/02/23 17:26 THROAT, MOUTH SWELLS NSAIDS (Non-Steroidal Allergy Severe TONGUE, Verified 06/02/23 17:26 Anti-Inflamma THROAT, MOUTH SWELLS shellfish derived Allergy Severe TONGUE, Verified 06/02/23 17:26 THROAT, MOUTH SWELLS ifosfamide AdvReac Severe CONFUSION/H Verified 06/02/23 17:26 ALLUCINATIO NS Home Medications Medication Instructions Recorded Confirmed Type furosemide 20 mg tablet 20 mg PO DAILY 04/21/25 04/21/25 History gabapentin 400 mg capsule 400 mg PO TID 04/21/25 04/21/25 History Past Med/Surg History Problem List Compression of superior vena cava (Acute) Pleural effusion on left (Acute) SIRS (systemic inflammatory response syndrome) (Acute) Elevated lactic acid level (Acute) Pneumothorax, left (Acute) Acute dyspnea (Acute) Sinus tachycardia (Acute) Pleural effusion, right Acute hypoxic respiratory failure Superior vena cava compression syndrome SIRS (systemic inflammatory response syndrome) Lactic acidosis Leukopenia due to antineoplastic chemotherapy Metastatic sarcoma to lung Anemia associated with chemotherapy Pleural mass Thrombocythemia Right lower lobe lung mass (Acute) History of sarcoma (Acute) Leg edema, left (Acute) Acute hypokalemia (Acute) Anemia (Acute) Medical History Flu-like symptoms Social History Smoking Status: Never smoker Hx Alcohol Use: No Hx Substance Use: No Preferred Language: Swedish Communication Ability: Effective Director Personal Required: No Beliefs That Will Affect Care: None Current Living Situation: Spouse Feels Safe at Home: Yes Assistive Devices: Lift Chair, Prosthesis, Stair Lift, Walker and Wheelchair Review of Systems Review of Systems: All systems reviewed & are unremarkable except as noted in HPI & below Physical Exam Physical Exam: In general she is awake and alert frail-appearing no physical distress. HEENT normocephalic atraumatic mucous membranes moist. Breathing mildly labored mild accessory muscle use no conversational dyspnea. Skin fairly pale, thin and frail appearing. No focal neurodeficits. Results & Data Results & Data Vital Signs (Past 12 Hours) Vital Signs Temp Pulse Pulse Resp BP BP Pulse Ox 04/21/25 19:03 126 H 04/21/25 18:18 138 H 22 111/80 97 04/21/25 18:17 130 H 22 111/80 98 04/21/25 16:54 129 H 22 101/66 97 04/21/25 15:31 92 04/21/25 14:59 123 H 04/21/25 14:35 98.4 F 134 H 18 96/63 L 96 O2 Del Method O2 Flow Rate 04/21/25 19:03 04/21/25 18:18 Nasal Cannula 3 04/21/25 18:17 04/21/25 16:54 Nasal Cannula 3 04/21/25 15:31 Room Air 04/21/25 14:59 04/21/25 14:35 Room Air Code Status & VTE Plan VTE Prophylaxis Plan VTE Prophylaxis will be ordered: No Reason for no VTE drug order: Contraindicated PG Care Time/CCT Total # of Minutes Spent Total Time Spent with Patient: Total time spent is greater than 50% in coordination of care (as documented) at patient's floor/unit and/or counseling patient: Coding Level of Care Code 54453 INT INP/OBS CARE MIN Diagnoses Metastatic sarcoma to lung C78.00; C49.9
[2025-04-21] MEDS: HYDROmorphone INJ 0.5 MG/0.5 ML SYR IV STA (20:31)
[2025-04-21] MEDS: GABAPENTIN 400 MG CAP PO STA (20:39)
[2025-04-21] MEDS ORDERED: ALUMINUM/MAGNESIUM SUSP 30 ML UDC PO PRN (21:58)
[2025-04-21] MEDS ORDERED: LORazepam 1 MG TAB SL PRN (21:58)
[2025-04-21] MEDS ORDERED: POLYETHYLENE (MIRALAX) 17 GM PACK PO PRN (21:58)
[2025-04-21] MEDS ORDERED: MAGNESIUM HYDROXIDE SUSP 30 ML UDC PO PRN (21:58)
[2025-04-21] MEDS ORDERED: MELATONIN 3 MG TAB PO PRN (21:58)
[2025-04-21] MEDS ORDERED: HYDROmorphone INJ 0.5 MG/0.5 ML SYR IV PRN (21:58)
[2025-04-21] MEDS ORDERED: ACETAMINOPHEN 325 MG TAB PO PRN (21:58)
[2025-04-21] MEDS ORDERED: MoRPHine SULFATE 10 MG/0.5 ML UDP PO PRN ×2 (21:58)
[2025-04-21] MEDS: GABAPENTIN 400 MG CAP PO SCH (22:15)
[2025-04-21 22:37] VITALS: BP 116/75; PULSE 127; RESP 16; TEMP 98.2; O2SAT 98
[2025-04-21] MEDS: METHADONE HCL 10 MG TAB PO SCH (23:32)
--- NOTE | 2025-04-22 08:16 | Hospitalist Progress Note ---
Date of Service April 22, 2025 Assessment & Plan Admission and Anticipated Discharge Date Admission Date: April 21, 2025 Results & Data Results & Data Vital Signs (Past 12 Hours) Vital Signs Temp Pulse Resp BP Pulse Ox O2 Del Method O2 Flow Rate 04/21/25 22:16 Nasal Cannula 4 04/21/25 22:16 36.8 C 127 H 16 116/75 98 Nasal Cannula 4
[2025-04-22] MEDS ORDERED: METHADONE HCL 10 MG TAB PO SCH ×2 (09:00→21:00)
[2025-04-22] MEDS: FUROSEMIDE 20 MG TAB PO SCH (09:05)
--- NOTE | 2025-04-22 12:03 | Discharge Summary ---
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 I first saw her a few years ago when if she had a lung mass that appeared to be recurrent sarcomaand she actually did have several years after that, but now came in today with hypoxic respiratory failure and possible SVC syndromeafter emergency and critical care management as well as discussions with tertiary care, patient recognized that she is in a very unfortunate situation and wanted to get home with hospice. This was not able to be set up in a timely manner and we have been asked to admit her to continue with hospice planning. She notes that she does have a little bit of shortness of breathI turned up the oxygen for her, she also noticed a little bit of chest pain, although she notes that having oxycodone at home has helped. She reiterates the desire to go home on hospice as quickly as possible. Admission Exam Per Admitting Provider In general she is awake and alert frail-appearing no physical distress. HEENT normocephalic atraumatic mucous membranes moist. Breathing mildly labored mild accessory muscle use no conversational dyspnea. Skin fairly pale, thin and frail appearing. No focal neurodeficits. 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 HEENT normocephalic atraumatic mucous membranes moist. Breathing mildly labored mild accessory muscle use no conversational dyspnea. Skin fairly pale, thin and frail appearing. No focal neurodeficits. Discharge Data Allergies Allergy/AdvReac Type Severity Reaction Status Date / Time ibuprofen Allergy Severe TONGUE, Verified 06/02/23 17:26 THROAT, MOUTH SWELLS NSAIDS (Non-Steroidal Allergy Severe TONGUE, Verified 06/02/23 17:26 Anti-Inflamma THROAT, MOUTH SWELLS shellfish derived Allergy Severe TONGUE, Verified 06/02/23 17:26 THROAT, MOUTH SWELLS ifosfamide AdvReac Severe CONFUSION/H Verified 06/02/23 17:26 ELIANEUCINAFARHAD NS Consultations 04/21/25 18:24 ED Decision to Admit Stat Ordered Studies 04/21/25 15:47 CT chest diagnostic w con Stat Hospital Course (1) Acute hypoxic respiratory failure: (2) Superior vena cava compression syndrome: Plan 1) Metastatic sarcoma to lung: Plan: -Discharge to home with home hospice - For pain controlmorphine 5 mg sublingual to test if this would be a reasonable home dose, Dilaudid IV as a backup for breakthrough to ensure she does not suffer if the morphine sublingual is not enough - for dyspneamorphine 2.5 sublingual, Ativan as a backup - admit to medical for now, home with hospice as soon as everything can be set up Total Time Total Time Spent Total Time Spent (In Minutes): <30 Discharge Plan Discharge Items Patient Disposition: Hospice - Home Reason For Visit: COMFORT CARE Discharge Diagnosis: 1. 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 During your stay , the focus of acre shifted to comfort measures. Following our discussion, you will be transitioning home with the support of hospice services to ensure continued comfort and quality of life. Pending Studies at Discharge: No Stand-Alone Forms: [facility] Medications and DC Order Prescriptions: Continued gabapentin 400 mg capsule 400 mg PO TID furosemide 20 mg tablet 20 mg PO DAILY Discharge Orders: Discharge Order (Routine); Ordered 04/22/25 Ordered By: Heath Valenzuela Admission Data Admit Date/Time: 04/21/25 19:24 Attending Provider: Mundo Cronin Admit Provider: Mundo Cronin Primary Care Provider: Sera Cunha Other Providers: Radhames Alfonso Other Interventions: Discharge Summary Assessment (RN) Last Done: 04/22/25 12:23 Supervising Physician Co-Signing Physician Notes I personally examined the patient and verified all hanson points of history and exam, discussed case, and agree with decision making with Dr Valenzuela comfort and dyspnea have been easy to manage. family ready to take her home. methadone is a home med - checks pill box and there's still some in there, he's not sure how much else at home. we discuss SL morphine for when she's no longer able to take the methadone; discuss fentanyl patch if needed as well - but also again right now pain has been reasy to control resting comfortably. no appearance of pain or distress metastatic sarcoma - for home, hospice. offered empathy and support
--- NOTE | 2025-04-25 18:20 | Electrocardiogram Report ---
Test Reason : Blood Pressure : */* mmHG Vent. Rate : 137 BPM Atrial Rate : 137 BPM P-R Int : 96 ms QRS Dur : 72 ms QT Int : 322 ms P-R-T Axes : 55 72 12 degrees QTcB Int : 486 ms Sinus tachycardia Nonspecific ST abnormality Otherwise normal ECG When compared with ECG of 02-Jun-2023 18:32, QRS voltage has decreased Nonspecific T wave abnormality, worse in Inferior leads Nonspecific T wave abnormality now evident in Anterior leads Confirmed by Junior Shannon ([id number] on 04/25/2025 6:20:25 PM Referred By: REFERRED SELF Confirmed By: Junior Shannon
== END 2025-04-22 15:59 | disposition hospice, home (50) | DRG 189 ==
LOC: ED 14:29 → 3E 19:24